=== PATIENT | male | born 1955 | race Caucasian/White ===

== ENCOUNTER 2021-10-10 14:38 | Outpatient (CLI) | payer MEDICARE, SELFPAY ==
--- NOTE | 2021-10-10 15:07 | XRR_ITS ---
PROCEDURE INFORMATION: Exam: XR Chest Exam date and time: 10/10/2021 3:09 PM Age: 66 years old Clinical indication: Shortness of breath; Additional info: R05.9 - cough, unspecified TECHNIQUE: Imaging protocol: Radiologic exam of the chest. Views: 2 views. COMPARISON: No relevant prior studies available. FINDINGS: Lungs: There is a right basilar opacity suggesting moderate right pleural effusion with associated compressive atelectasis and/or consolidation. Superimposed pneumonia cannot be excluded in this setting. A small left pleural effusion is also noted. No pneumothorax. Postobstructive pathology or neoplasm cannot be excluded. Continued imaging follow-up or CT correlation should be considered. Pleural spaces: See Lungs finding. Heart/Mediastinum: No cardiomegaly. Bones/joints: Multiple old healed right rib fractures are noted. XR/XR chest 2V* [id number] IMPRESSION: Right basilar opacity and bilateral pleural effusions as described.
--- NOTE | 2021-10-10 15:07 | XRR_ITS ---
PROCEDURE INFORMATION: Exam: XR Soft Tissue Neck Exam date and time: 10/10/2021 3:09 PM Age: 66 years old Clinical indication: Other: Cough; Additional info: R05.9 - cough, unspecified TECHNIQUE: Imaging protocol: Radiologic exam of the soft tissues of the neck. COMPARISON: No relevant prior studies available. FINDINGS: Airway: Normal. No abnormal narrowing. Soft tissues: Normal. Normal epiglottis. Bones/joints: Multiple old healed deformities right upper ribs. Probable osteopenia. Small bilateral cervical ribs. Multilevel disc disease and endplate osteophytes. Other findings: Two views submitted. XR/XR soft tissue neck [id number] IMPRESSION: No acute soft tissue findings
== END 2021-10-10 14:39 | disposition home or self-care (01) ==
PROVIDERS: PCP Family Medicine; Visit Provider Emergency Medicine
DX: R05.9 Cough, unspecified (principal); R49.1 Aphonia; R63.4 Abnormal weight loss; R06.02 Shortness of breath; R53.1 Weakness; J90 Pleural effusion, not elsewhere classified
CPT/HCPCS: 70360; 71046; 83880

== ENCOUNTER 2021-10-10 14:41 | Outpatient (CLI) | payer MEDICARE, SELFPAY ==
[2021-10-10 15:34] LABS: Basophils % 0.2 %; Eosinophils # 0.1 10^3/uL (0.0-0.8); Eosinophils % 0.7 %; Hematocrit 41.2 % (42.0-52.0); Hemoglobin 13.7 g/dL (11.7-16.6); Lymphocytes # 2.4 10^3/uL (0.8-4.8); Lymphocytes % 24.1 %; Mean Corpuscular HGB Conc 33.3 g/dL (30.0-36.0); Mean Corpuscular Hemoglobin 31.4 pg (28.0-34.0); Mean Corpuscular Volume 94.3 fl (80-94); Mean Platelet Volume 11.6 fL (7.4-10.4); Monocytes # 1.6 10^3/uL (0.2-0.9); Monocytes % 16.3 %; Neutrophils # 5.71 10^3/uL (1.8-7.7); Neutrophils % 58.3 %; Nucleated Red Blood Cells % 0 %; Platelet Count 102 10^3/cmm (130-400); Red Blood Count 4.37 10^6/uL (4.1-5.3); Red Cell Distribution Width 15.8 % (12.1-15.1); White Blood Count 9.8 10^3/uL (4.0-10.0)
[2021-10-10 16:18] LABS: Alanine Aminotransferase 19 U/L (0-41); Albumin Level 3.1 g/dL (3.5-5.2); Alkaline Phosphatase 88 U/L (40-130); Anion Gap 23.4 (5-19); Aspartate Amino Transferase 29 U/L (0-40); Blood Urea Nitrogen 68 mg/dL (8-23); Calcium 12.1 mg/dL (8.5-10.5); Carbon Dioxide 21 mmol/L (22-29); Chloride 96 mmol/L (98-107); Globulin 2.9 g/dL (1.3-4.6); Glomerular Filtration Rate 28.5 mL/min (90-130); Glucose 93 mg/dL (65-115); Osmolality Calculated 303 mOsm/kg (285-295); Potassium 3.4 mmol/L (3.5-5.1); Prostate Specific Antigen Scr 3.05 ng/mL (0-4); Sodium 137 mmol/L (136-145); Thyroid Stimulating Hormone 17.43 uIU/mL (0.27-4.20); Total Bilirubin 0.7 mg/dL (0.15-1.2)
[2021-10-10 16:49] LABS: Carcinoembryonic Antigen 1.1 ng/mL (0.0-4.7)
== END 2021-10-10 14:42 | disposition home or self-care (01) ==
PROVIDERS: PCP Family Medicine; Visit Provider Emergency Medicine
DX: R05.9 Cough, unspecified (principal); R06.02 Shortness of breath; R53.1 Weakness; R63.4 Abnormal weight loss
CPT/HCPCS: 36415; 80053; 82378; 84443; 85025; G0103

== ENCOUNTER 2021-10-10 15:41 | Inpatient (IN) | payer MEDICARE, SELFPAY ==
[2021-10-10] VITALS (10 sets, daily range): BP systolic 101–137; BP diastolic 67–80; PULSE 69–78; RESP 20–27; TEMP 36–36.8; O2SAT 92–98; BMI 26.7
--- NOTE | 2021-10-10 16:09 | ECG_ITS ---
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 Measurements Intervals [place] Rate: 77 P: -4 GA: 175 QRS: 17 QRSD: 114 T: 267 QT: 279 QTc: 317 Interpretive Statements SINUS RHYTHM MODERATE INTRAVENTRICULAR CONDUCTION DELAY [110+ ms QRS DURATION] NONSPECIFIC T-WAVE ABNORMALITY No previous ECG available for comparison Electronically Signed On 10-11-2021 8:21:26 CDT by Oswald Case M.D. [email or web address]
--- NOTE | 2021-10-10 16:45 | ED_ITS ---
HPI - SOB/Dyspnea General: Chief Complaint: Shortness of Breath/Dyspnea Stated Complaint: abnormal labs/xrays Time Seen by Provider: 10/10/21 16:24 Source: patient Mode of arrival: ambulatory History of Present Illness: HPI Narrative: 66-year-old male presents emergency room with complaint of a pleural effusion. Last several weeks patient has had shortness of breath cough with some swelling in his lower extremities. No fever sweats or chills he has had some mild hemoptysis he is also noticed some weight loss. He was seen in the local clinic chest x-ray showed a pleural effusion he was directed here by by the midlevel. He denies any chest pain no fever sweats or chills. He is not on any antico agulants. Patient is a former smoker. MD elicited complaint: shortness of breath and cough Pertinent past history: COPD Onset (ago): week(s) (3) Timing: constant Severity: mild Exacerbating factors: exertion Relieving factors: rest Known history of: COPD Associated symptoms: Reports cough and hemoptysis; Deny abdominal pain, chest congestion, chest pain, diaphoresis, dizziness, extremity pain, fever(s), lightheadedness, myalgias, nausea, orthopnea, palpitations, paresthesias, polydipsia, polyuria, rash, sense of impending doom, syncope or vomiting Treatment prior to arrival: none Review of Systems Const: Denies: fever(s), chills or diaphoresis ENMT: Denies: throat pain, ear or mastoid pain, nasal discharge or nasal congestion Card: Denies: chest pain, palpitations, lightheadedness, syncope or orthopnea Resp: Reports: dyspnea, productive cough, wheezing and hemoptysis; Denies: non-productive cough or chest congestion GI: Denies: abdominal pain, nausea or vomiting : Denies: flank pain, difficulty urinating, dysuria, urinary frequency or urinary urgency Musc: Denies: neck pain, back pain or extremity pain Skin/Breast: Denies: rash or pruritus Neuro: Denies: dizziness Endo: Denies: polyuria or polydipsia PFSH ED 2 PFSH: Medical History BPH (benign prostatic hyperplasia) Depression Hypertension Hypothyroid Pneumothorax Renal failure Rib fracture Physical Exam Const: GENERAL APPEARANCE: cooperative and comfortable ORIENTATION/CONSCIOUSNESS: Yes awake, Yes oriented to person, Yes oriented to place and Yes oriented to time HENMT: COMMON NORMALS: normocephalic, atraumatic, hearing grossly normal bilaterally, external ears normal, EAC's normal, TM's normal bilaterally, Normal nasal mucous membranes and turbinates present, moist oral mucous membranes and oropharynx normal HEAD & SCALP: normocephalic and atraumatic NOSE: Normal nasal mucous membranes and turbinates present EXTERNAL EAR: Yes external ears normal EXTERNAL AUDITORY CANAL: EAC's normal TYMPANIC MEMBRANE: TM's n ormal bilaterally Eye: COMMON NORMALS: Equal, round and reactive pupils present, EOMs intact bilaterally, conjunctivae normal and no scleral icterus CONJUNCTIVA: Yes conjunctivae normal PUPIL: Yes Equal, round and reactive pupils present Neck/C-Spine: COMMON NORMALS: full ROM, no lymphadenopathy, supple and no JVD Lymph: LYMPHATIC: no lymphadenopathy noted and no lymphedema noted Resp: COMMON NORMALS: normal respiratory effort, No retractions, No use of accessory muscles and clear to auscultation bilaterally AUSCULTATION: clear to auscultation bilaterally Cardio: COMMON NORMALS: no JVD, regular rate, regular rhythm and No murmurs present (Cardio) RATE: regular rate RHYTHM: regular rhythm GI: COMMON NORMALS: Soft to palpation and No hepatosplenomegaly present AUSCULTATION: Yes normoactive bowel sounds PALPATION: Yes Soft to palpation, No Tenderness to palpation present (GI), No Guarding due to palpation present (GI) and Yes No hepatosplenomegaly present Extremity: COMMON NORMALS: normal to inspection, capillary refill normal, no clubbing, cyanosis or edema, no calf tenderness and no pedal edema Neuro: SENSORIUM/ORIENTATION: Yes oriented to person, Yes oriented to place and Yes oriented to time Skin: COMMON NORMALS: no rashes or lesions noted GENERAL SKIN EXAM: no rashes or lesions noted Course Vital Signs: Vital signs: Vital Signs Temperature 97.4 F L 10/12/21 15:55 Pulse Rate 90 10/12/21 15:55 Respiratory Rate 18 10/12/21 15:55 Blood Pressure 124/70 10/12/21 15:55 Pulse Oximetry 90 10/12/21 17:29 Oxygen Delivery Me thod 10/12/21 15:55 Oxygen Flow Rate 2 10/12/21 15:55 MDM - SOB/Dyspnea Medical Decision Making Large pleural effusion highly suspicious for tumor. Will admit discussed with hospitalist orders written Medical Records I reviewed the patient's medical records. Lab Data I reviewed the patient's lab results. : 10/12/21 05:16 10/12/21 05:16 Labs/Radiology: Radiology Impressions Chest/Abdomen/Pelvis CT 10/10/21 17:56 IMPRESSION: 1. Bilateral pleural effusions. Right perihilar and basilar consolidations. See discussion above. No ground-glass opacity. No obvious pulmonary nodules. Pleural metastasis may be present in this setting given abnormalities in the abdomen and pelvis. 2. Somewhat limited assessment due to lack of IV contrast however no obvious enlarged mediastinal adenopathy. Mildly enlarged cardiophrenic adenopathy is probably present. 3. Diffuse esophageal dilatation. See discussion above. 4. Minimal ascending aortic dilatation at 4.1 cm. IMPRESSION: 1. Findings suggestive of extensive peritoneal carcinomatosis with omental caking. Confluent soft tissue density suspicious for adenopathy in the superior aortocaval region. No obvious source of primary malignancy on this exam. 2. Otherwise somewhat limited assessment due to lack of contrast. No obvious bowel obstruction, free air or pneumatosis. 3. Small amount of abdominopelvic ascites. ADDENDUM: 10/10/211957 Addendum- Nonobstructing left lower pole renal calculus measuring 2 x 2 mm. Additional mildly enlarged aortocaval adenopathy is also present. Lumbar Spine CT 10/10/21 17:56 IMPRESSION: 1. No acute spine fracture or subluxation. No severe stenosis related to osseous elements. 2. Soft tissue/visceral findings as described on abdominopelvic CT exam. Thyroid Ultrasound 10/11/21 06:25 IMPRESSION: Unremarkable thyroid. Abdomen Ultrasound 10/12/21 10:03 IMPRESSION: No ascites. Thoracentesis Ultrasound 10/12/21 10:03 IMPRESSION: Uncomplicated ultrasound-guided RIGHT thoracentesis with removal of 1000 cc pleural fluid. Chest X-Ray 10/12/21 14:58 IMPRESSION: No pneumothorax status post RIGHT thoracentesis. Lymph Node Biopsy Ultrasound 10/12/21 15:05 IMPRESSION: Uncomplicated ultrasound-guided biopsy RIGHT inguinal lymph node/nodule Laboratory Results PT 15.70 SECONDS (12.1-14.9) H 10/10/21 17:19 INR 1.22 (0.8-1.2) H 10/10/21 17:19 APTT 28.2 SECONDS (23.9-36.7) 10/10/21 17:19 D-Dimer <= 0.27 ug/mIFEU (0-0.59) 10/10/21 17:19 Discharge Plan Discharge Patient Disposition: Placed in Observation Admit Provider: Vijay Phillip Clinical Impression: Pleural effusion, Hypercalcemia, Chronic renal failure, Metabolic acidosis Discharge Diet: Regular Discharge Activity: Resume usual activity and Increase activity as tolerated Coding Level of Care Code ED Family Consumer Science Teacher for Jose Luis Cronin
--- NOTE | 2021-10-10 17:55 | P.HP_ITS ---
Providers/Chief Complaint Primary Care Provider: Josemanuel Negrete DO Chief Complaint: abnormal labs/xrays History of Present Illness Chandan Tirado is a 66 year old male with past medical history of hypertension, heart murmur, history of rib fracture and a possible punctured lung after trauma around 6 years ago, COPD who presents to the ER today because of difficulty in breathing which has been getting worse for over a month month and a half. Symptoms associated with orthopnea and PND. Currently after the patient he is not even able to talk without feeling short of breath. He is also complaining of swelling which has been increasing gradually over the last 3 weeks in his lower limbs. He feels numbness from the waist down. Denies any loss of bowel or bladder functions. Denies any fever. In the ER he was found to have bilateral pleural effusion, saturating 98% on room air but desaturating on lying down, short of breath, blood work showed hemoglobin of 13.7, platelet count of 102, potassium of 3.4, BUN of 68, creatinine of 2.3, calcium of 12.1, proBNP of 1169, TSH of 17.43 Review of Systems General: Reports: 10 or more systems reviewed and unremarkable except in HPI and below Const: Denies: fever(s), chills, body aches, change in appetite, change in weight, malaise, night sweats, diaphoresis, change in sleep pattern, daytime sleepiness or snoring Eyes: Denies: change in vision, blurry vision, photophobia, eye discomfort or eye discharge ENMT: Denies: throat pain, enlarged tonsils, hoarseness, mouth pain, oral sores, dry mouth, tinnitus, nasal congestion or post nasal drip Card: Denies: chest pain, palpitations, irregular heart rhythm, edema, swelling of feet/ankles, lightheadedness, syncope, pre-syncope, dyspnea on exertion, orthopnea, leg pain with exertion or acrocyanosis Resp: Denies: dyspnea, productive cough, non-productive cough, wheezing, stridor, pain on inspiration, change in phlegm color, hemoptysis or chest congestion GI: Denies: abdominal pain, nausea, vomiting, hematemesis, coffee ground emesis, dysphagia, heartburn, diarrhea, constipation, bloating, GI cramping, change in bowel habits, pain on defecation, hematochezia or melena : Denies: flank pain, difficulty urinating, dysuria, urinary frequency, urinary urgency, urinary hesitancy, urinary dribbling, difficulty starting urination, change in urine stream, nocturia or hematuria Musc: Denies: neck pain, back pain, extremity pain, joint pain, joint swelling, joint redness, joint stiffness or limited range of motion Neuro: Denies: headache(s), numbness in extremities, weakness in extremities, sensory changes, lack of coordination, difficulty walking, frequent falls, dizziness, vertigo, confusion, Slurred speech present, difficulty communicating thoughts or seizure-like activity Psych: Denies: anxiety, depression, mood swings, panic attacks, hopelessness or irritability Endo: Denies: polyuria, polydipsia, tired all the time, cold intolerance, excessive sweating, flushing or heat intolerance Howie/Lymph: Denies: easy bruising or easy bleeding All/Imm: Denies: tongue swelling, facial swelling or acute wheezing Medications/Allergies Home Medications Medication Instructions Recorded Confirmed Last Taken Type albuterol sulfate 90 mcg/actuation 2 puff inhalation Q6H PRN 10/10/21 10/10/21 Unknown History aerosol inhaler Shortness Of Breath alprazolam 1 mg tablet 1 mg PO BEDTIME PRN Anxiety 10/10/21 10/10/21 Unknown History amlodipine 5 mg tablet 5 mg PO DAILY 10/10/21 10/10/21 10/10/21 History brexpiprazole 0.5 mg tablet 0.5 mg PO DAILY 10/10/21 10/10/21 10/09/21 History (Nicole) carvedilol 12.5 mg tablet 12.5 mg PO BID 10/10/21 10/10/21 10/09/21 History citalopram 40 mg tablet 40 mg PO DAILY 10/10/21 10/10/21 10/09/21 History fluticasone propionate 115 2 puff inhalation Q12H 10/10/21 10/10/21 10/10/21 History mcg-salmeterol 21 mcg/actuation HFA inhaler (Advair HFA) fluticasone propionate 50 2 spray intranasal BID PRN Nasal 10/10/21 10/10/21 Unknown History mcg/actuation nasal Congestion spray,suspension gabapentin 100 mg capsule 100 mg PO BID 10/10/21 10/10/21 10/09/21 History ibuprofen 800 mg tablet 800 mg PO BID PRN Pain 10/10/21 10/10/21 10/10/21 History prazosin 1 mg capsule 1 - 3 mg PO BEDTIME 10/10/21 10/10/21 10/09/21 History tamsulosin 0.4 mg capsule 0.8 mg PO DAILY 10/10/21 10/10/21 10/09/21 History Allergies Allergy/AdvReac Type Severity Reaction Status Date / Time mold Allergy Intermediate unknown Uncoded 10/10/21 13:12 PFSH Acute PFSH: Medical History (Updated 10/10/21 @ 18:02 by Vijay Phillip MD) BPH (benign prostatic hyperplasia) Depression Hypertension Hypothyroid Pneumothorax Renal failure Rib fracture Vitals/I&O/Wt Last Vital Signs Temp 96.8 F L 10/10/21 15:49 Pulse 78 10/10/21 15:49 Resp 20 H 10/10/21 15:49 BP 101/67 10/10/21 15:49 Pulse Ox 92 10/10/21 16:54 O2 Del Method 10/10/21 15:49 Weight last 48 hrs Weight 89.358 kg Physical Exam Narrative: General: No acute distress, AO x3, pleasant HEENT: PERRLA, pupils bilaterally equal and reactive Chest: Bilateral bronchial breath sounds, decreased air entry bilateral lower zone, rhonchi diffuse all over the lung jefferson, fine crackles bilaterally lower zone CVS: S1-S2 regular, early diastolic murmur present at aortic area radiating to apex, no tachycardia, no gallops, no rubs Abdomen: Soft, nontender, no organomegaly, bowel sounds present Neuro: No focal deficits, no facial deformity, AO x3, power 5/5 in all limbs Extremities: Bilateral 2+ pitting edema up to the knees A&P Assessment and plan (1) Shortness of breath: Most likely secondary to combination of COPD and acute decompensated congestive heart failure. No echocardiogram in the past. proBNP mildly elevated to 1100. Clinically patient looks like in congestive heart failure. Oxygen supplementation keeping saturation over 90%. Check CT chest without contrast to rule out any underlying consolidation or mass under the pleural fluid. Status: Acute (2) Congestive heart failure: IV Lasix 80 mg once, Martínez catheter. Strict input output charting, daily weights. Echocardiogram. Telemetry. Status: Acute (3) Pleural effusion: Could be secondary congestive heart failure. We will try to diurese and look for response. If patient continues to feel short of breath will consult pulmonology for possible thoracocentesis for further etiology and treatment Status: Acute (4) Renal failure: Do not have baseline creatinine in system. Given electrode abnormality and metabolic acidosis could be MATTY on CKD. Patient states he takes ibuprofen 800 mg twice daily on a daily basis rather than as needed. Martínez catheter as above. Check urinalysis, urine lites, urine creatinine, urine eosinophils. CT abdomen pelvis to rule out obstructive nephropathy. Monitor BMP daily. Medical reconstruction done for nephrotoxic drugs. Status: Acute (5) Hypothyroid: No past history of hypothyroidism. Not on levothyroxine. TSH more than 17. Check free T3, free T4, thyroid peroxidase antibody, cortisol level. Check thyroid ultrasound Start on IV levothyroxine if cortisol levels appropriate at 75 mcg IV daily while on telemetry. Status: Acute (6) Hypertension: Goal blood pressure less than 140/90 mmHg with mean over 65. Takes amlodipine and carvedilol twice daily at home. Hold off for now and continue to monitor. Status: Acute (7) Metabolic acidosis: Continue to monitor daily. Status: Acute (8) Hypercalcemia: Given presentation cannot rule out underlying malignancy versus secondary to CKD Check PTH, vitamin D levels Status: Acute (9) Thrombocytopenia: Continue to monitor. Status: Acute Plan Lower limb paresthesia: Patient complaining of lower limb paresthesia going on for last 2 to 3 months. Does not complain or give history of any recent trauma. Could be radiculopathy versus neuropathy. Check CT lumbar spine. Analgesia: Tylenol as needed, morphine as needed Glycemic control: Not needed. Check A1c Nutrition: Renal cardiac diet CODE STATUS: Full code. Discussed in detail. Patient states he would like to be coded only 3 times and if he does not revive he does not want any further attempts. PUD prophylaxis: Famotidine for PUD prophylaxis DVT prophylaxis: Heparin 5000 every 12 hourly. Discharge planning: Home with caregiver once medically stable. Admit to CSU. This documentation was created by [employer] pressure control supervisor software. Every effort was made to ensure accuracy of pressure control supervisor. Any obvious errors or omissions should be clarified with the author of the document. Attestations Medical Necessity Statement*: Admission for more than 2 midnights for management of shortness of breath secondary to congestive heart failure, hypothyroidism, renal failure leading to metabolic acidosis Time Spent in Patient Care: Greater than 35 minutes Coding Level of Care Code Acute Supervisor/Port Director for Jaretg Fwd Diagnoses Shortness of breath R06.02 Congestive heart failure I50.9 Pleural effusion J90 Renal failure N19 Hypothyroid E03.9 Hypertension I10 Metabolic acidosis E87.2 Hypercalcemia E83.52 Thrombocytopenia D69.6
--- NOTE | 2021-10-10 17:55 | USCV_ITS ---
Candida Chandan Age: 66 Gender: M : 1955 Exam Date: 10/10/2021 20:03 Ordering Phys: Vijay Phillip MD Technologist: Shyam Haddad [place] [facility] [place] Indication: Congestive heart failure / aortic regurg murmur BP: 134 / 80 HR: 87 Rhythm: Atrial fibrillation Technical Quality: Very technically difficult study MEASUREMENTS (Male / Female) Normal Values 2D ECHO LV Diastolic Diameter PLAX 3.9 cm 4.2 - 5.9 / 3.9 - 5.3 cm LV Systolic Diameter PLAX 3.5 cm IVS Diastolic Thickness 1.4 cm 0.6 - 1.0 / 0.6 - 0.9 cm IVS Systolic Thickness 1.5 cm LVPW Diastolic Thickness 1.2 cm 0.6 - 1.0 / 0.6 - 0.9 cm LVPW Systolic Thickness 1.6 cm LVOT Diameter 2.1 cm LV Ejection Fraction 2D Teich 10.4 % LV Ejection Fraction MOD 2C 60.7 % LV Ejection Fraction 2C AL 59.6 % LA Diameter 3.6 cm Aorta at Sinotubular Diameter 2.4 cm IVC Diameter 1.1 cm M-MODE Aortic Annulus Diameter 2.2 cm LA Ao Ratio MM 1.8 MV E Point Septal Separation 0.5 cm DOPPLER Right Atrial Pressure 3.0 mmHg PV Peak Velocity 98.0 cm/s FINDINGS Left Ventricle Very limited study with echo contrast utilized. Left ventricular size and function probably within normal limits though even with contrast it is difficult to see. Irregular rhythm prevents diastology evaluation. Ejection fraction is probably within normal limits. Wall motion disturbances cannot be determined. Right Ventricle Right ventricle not well visualized. Right Atrium Right atrium not well visualized. Left Atrium Left atrium not well visualized. Mitral Valve Mitral valve not well visualized. Aortic Valve Aortic valve not well visualized. Tricuspid Valve Tricuspid valve not well visualized. Pulmonic Valve Pulmonic valve not well visualized. Pericardium Normal pericardium without effusion. Aorta Aorta not well visualized. IVC Inferior vena cava not visualized. CONCLUSIONS Very limited study with echo contrast utilized. Left ventricular size and function probably within normal limits though even with contrast it is difficult to see. Irregular rhythm prevents diastology evaluation. Ejection fraction is probably within normal limits. Wall motion disturbances cannot be determined. There are no prior echocardiogram studies to compare. Dr. Oswald Case MD (Electronically Signed) Final Date: 10 October 2021 22:25 S
--- NOTE | 2021-10-10 17:56 | CTR_ITS ---
PROCEDURE INFORMATION: Exam: CT Lumbar Spine Without Contrast Exam date and time: 10/10/2021 6:15 PM Age: 66 years old Clinical indication: Low back pain; Additional info: Lower limb parasthesia TECHNIQUE: Imaging protocol: Computed tomography of the lumbar spine without contrast. Radiation optimization: All CT scans at this facility use at least one of these dose optimization techniques: automated exposure control; mA and/or kV adjustment per patient size (includes targeted exams where dose is matched to clinical indication); or iterative reconstruction. COMPARISON: [place] [id number] 10/10/2021 6:11 PM RADIATION DOSE METRICS: Total DLP (mGy-cm): 775.2 FINDINGS: Bones/joints: Most inferior ribs appears somewhat hypoplastic and are designated at T12. Moderate vacuum disc degeneration at L3-L4 and L4-L5. Minimal multilevel endplate spurring and mild facet arthropathy are noted. Chronic sclerosis at the anterior bilateral SI joints without osseous destruction/erosions or ankylosis. No obvious severe stenosis related to osseous elements. Punctate sclerotic focus measuring 2 mm in the left iliac bone. Kidneys and ureters: Nonobstructing left renal calculus measuring about 2 x 2 mm. Lymph nodes: Partially visualized confluent soft tissue density suspicious for neoplastic disease/adenopathy in the anterior superior aortocaval region and left periaortic adenopathy as described on abdominopelvic CT exam report. Soft tissues: Unremarkable. CT/CT lumbar spine wo con* [id number] IMPRESSION: 1. No acute spine fracture or subluxation. No severe stenosis related to osseous elements. 2. Soft tissue/visceral findings as described on abdominopelvic CT exam.
--- NOTE | 2021-10-10 17:56 | CTR_ITS ---
PROCEDURE INFORMATION: Exam: CT Chest Without Contrast; Diagnostic Exam date and time: 10/10/2021 6:11 PM Age: 66 years old Clinical indication: Abdominal tenderness; Other: Chf, pleural effusion, beto TECHNIQUE: Imaging protocol: Diagnostic computed tomography of the chest without contrast. Radiation optimization: All CT scans at this facility use at least one of these dose optimization techniques: automated exposure control; mA and/or kV adjustment per patient size (includes targeted exams where dose is matched to clinical indication); or iterative reconstruction. COMPARISON: CR XR chest 2V* [id number] 10/10/2021 3:09 PM RADIATION DOSE METRICS: Total DLP (mGy-cm): 898.03 FINDINGS: Lungs: No obvious central airway obstruction or endobronchial lesions. Pleural spaces: Moderate-large right and small left pleural effusions. Patchy right perihilar and basilar consolidations may be related to compressive atelectasis versus developing pneumonia and follow-up should be obtained. No ground-glass opacities otherwise. Heart: Normal heart size with coronary calcification. No obvious vascular congestion. Mediastinal space: There is mild diffuse thoracic esophageal distention with fluid/debris which may represent gastroesophageal reflux. Although no large obstructive masses are identified, a small obstructive lesion/stricture or distal esophageal motility disorder cannot be excluded. Follow-up esophageal assessment may be obtained if clinically indicated. Lymph nodes: Nonenlarged mediastinal hilar lymph nodes consistent with chronic granulomatous disease. Mildly enlarged cardiophrenic adenopathy is probably present measuring up to 11 mm. Vasculature: Minimal ascending aortic dilatation at 4.1 cm. Descending aorta measures 3.1 cm. Bones/joints: No acute findings. Soft tissues: No acute findings. PROCEDURE INFORMATION: Exam: CT Abdomen And Pelvis Without Contrast Exam date and time: 10/10/2021 6:11 PM Age: 66 years old Clinical indication: Abdominal tenderness; Other: Chf, pleural effusion, beto TECHNIQUE: Imaging protocol: Computed tomography of the abdomen and pelvis without contrast. Radiation optimization: All CT scans at this facility use at least one of these dose optimization techniques: automated exposure control; mA and/or kV adjustment per patient size (includes targeted exams where dose is matched to clinical indication); or iterative reconstruction. COMPARISON: CR XR chest 2V* [id number] 10/10/2021 3:09 PM RADIATION DOSE METRICS: Total DLP (mGy-cm): 898.03 FINDINGS: Liver: Normal. No mass. Gallbladder and bile ducts: Gallbladder is somewhat distended which may be related to prolonged fasting versus cholestasis. No obvious imaging signs of acute cholecystitis or bile duct dilatation. Clinical correlation should be obtained. Sonographic follow-up may also be considered if clinically indicated. Pancreas: Fatty atrophy of the pancreas with no large discrete mass or ductal dilatation. Spleen: Normal spleen size with multiple calcified splenic granulomas. Adrenal glands: Small right adrenal calcifications, likely granulomatous disease. No adrenal masses otherwise. Kidneys and ureters: No obstructing calculus. No hydronephrosis. Stomach and bowel: Moderate amount of rectal stool with no evidence of significant fecal retention in the proximal colon. No colonic or small bowel obstruction or pneumatosis. Small bowel assessment is otherwise limited due to lack of contrast. Appendix: No evidence of appendicitis. Intraperitoneal space: There is small abdominopelvic ascites with diffuse somewhat irregular peritoneal thickening and several anterior sub mesenteric/omental nodularity and confluent soft tissue density suggesting extensive peritoneal carcinomatosis with omental caking. Vasculature: No abdominal aortic aneurysm. Lymph nodes: Confluent soft tissue density in the upper aortocaval region suspicious for metastatic disease/confluent adenopathy measuring about 5.8 by 4.1 cm. Mildly enlarged mesenteric and inguinal adenopathy measuring up to 14 mm in the right inguinal region Urinary bladder: Unremarkable as visualized. Reproductive: Unremarkable as visualized. Bones/joints: No acute fracture. Soft tissues: No acute findings. CT/[place] [id number] IMPRESSION: 1. Bilateral pleural effusions. Right perihilar and basilar consolidations. See discussion above. No ground-glass opacity. No obvious pulmonary nodules. Pleural metastasis may be present in this setting given abnormalities in the abdomen and pelvis. 2. Somewhat limited assessment due to lack of IV contrast however no obvious enlarged mediastinal adenopathy. Mildly enlarged cardiophrenic adenopathy is probably present. 3. Diffuse esophageal dilatation. See discussion above. 4. Minimal ascending aortic dilatation at 4.1 cm. IMPRESSION: 1. Findings suggestive of extensive peritoneal carcinomatosis with omental caking. Confluent soft tissue density suspicious for adenopathy in the superior aortocaval region. No obvious source of primary malignancy on this exam. 2. Otherwise somewhat limited assessment due to lack of contrast. No obvious bowel obstruction, free air or pneumatosis. 3. Small amount of abdominopelvic ascites.
[2021-10-10 18:04] LABS: INR 1.22 (0.8-1.2)
[2021-10-10 18:05] LABS: Partial Thromboplastin Time 28.2 SECONDS (23.9-36.7)
[2021-10-10 18:33] LABS: D Dimer <= 0.27 ug/mIFEU (0-0.59)
[2021-10-10] MEDS: FUROsemide 10 mg/mL SDV 10mL 80 MG IVP (19:07)
[2021-10-10 20:01] LABS: Potassium, Radom Urine 46 mmol/L; Urine Creatinine 176 mg/dL (39-259)
[2021-10-10 20:20] LABS: Anion Gap 21.2 (5-19); Blood Urea Nitrogen 67 mg/dL (8-23); Calcium 11.7 mg/dL (8.5-10.5); Carbon Dioxide 21 mmol/L (22-29); Chloride 94 mmol/L (98-107); Glucose 91 mg/dL (65-115); Iron 55 ug/dL (59-158); Magnesium 2.3 mg/dL (1.7-2.3); Osmolality Calculated 295 mOsm/kg (285-295); Percent Saturation 29.8 % (20-50); Potassium 3.2 mmol/L (3.5-5.1); Sodium 133 mmol/L (136-145); Total Iron Binding Capacity 184 mcg/dl; Unsaturated Iron Binding 129 ug/dL (112-347)
[2021-10-10 20:25] LABS: Add Urine Microscopic? YES; Bilirubin Urine Neg (Negative); Blood Urine 3+ (Negative); Glucose Urine UA Norm (Normal); Ketones Urine Negative (Negative); Leukocyte Esterase Urine Negative (Negative); Nitrate Urine Negative (Negative); Protein Urine Trace (Negative); Specific Gravity, Urine 1.025 (1.005-1.030); Urine Appearance Clear (CLEAR); Urine Color Yellow (Yellow); Urobilinogen Urine Norm (Negative); pH Urine 5 (5-7)
[2021-10-10 20:26] LABS: Bacteria Urine TRACE /hpf; Hyaline Casts Urine 25-40 /lpf; Mucus Urine TRACE /hpf; Squamous Epithelial Cell Urine 0-4 /hpf (0-5)
[2021-10-10 20:28] LABS: Add Urine Culture? No
[2021-10-10 20:34] LABS: Folate Level < 2.0 ng/mL (4.5-32.2)
[2021-10-10 20:35] LABS: Urine Random Chloride < 10 mmol/L; Urine Random Sodium 10 mmol/L
[2021-10-10 20:36] LABS: Procalcitonin 0.91 ng/mL (0-0.5); Vitamin B12 404 pg/mL (232-1245)
[2021-10-10] MEDS: perflutren protein-a microsphr 0.22 mg/mL SDV 3 mL IV (21:19)
[2021-10-10] MEDS: budesonide 0.5 mg/2 mL Neb INHALATION (21:34)
[2021-10-10 21:36] LABS: Eosinophil Urine No Eosinophils Seen
[2021-10-10 21:37] LABS: Calcium 11.9 mg/dL (8.5-10.5)
[2021-10-10 21:44] LABS: Parathyroid Hormone 4.3 pg/mL (15-65)
[2021-10-10 22:14] LABS: 25 Hydroxy Vitamin D 90 ng/mL (30-100)
[2021-10-10] MEDS: famotidine 20 mg/2 mL INJ IVP (22:42)
[2021-10-10] MEDS: heparin 5,000 unit/mL INJ 1 mL 5000 UNIT SUBCUT (22:42)
[2021-10-10] MEDS: cyanocobalamin 1,000 mcg/mL SDV 1000 MCG IM (22:43)
[2021-10-10] MEDS: docusate sodium 100 mg Capsule PO (22:43)
[2021-10-10] MEDS: gabapentin 100 mg Capsule PO (22:43)
[2021-10-10] MEDS: ferrous gluconate 324 mg Tablet PO (22:43)
[2021-10-10 23:57] LABS: Basophils % 0.1 %; Eosinophils # 0.1 10^3/uL (0.0-0.8); Eosinophils % 0.8 %; Hematocrit 37.7 % (42.0-52.0); Hemoglobin 12.7 g/dL (11.7-16.6); Lymphocytes % 19.4 %; Mean Corpuscular HGB Conc 33.7 g/dL (30.0-36.0); Mean Corpuscular Hemoglobin 31.8 pg (28.0-34.0); Mean Corpuscular Volume 94.5 fl (80-94); Mean Platelet Volume 11.6 fL (7.4-10.4); Monocytes # 1.5 10^3/uL (0.2-0.9); Monocytes % 14.7 %; Neutrophils # 6.61 10^3/uL (1.8-7.7); Neutrophils % 64.3 %; Nucleated Red Blood Cells % 0 %; Platelet Count 97 10^3/cmm (130-400); Red Blood Count 3.99 10^6/uL (4.1-5.3); Red Cell Distribution Width 15.7 % (12.1-15.1); White Blood Count 10.3 10^3/uL (4.0-10.0)
[2021-10-11] VITALS (14 sets, daily range): BP systolic 121–140; BP diastolic 61–80; PULSE 75–106; RESP 16–26; TEMP 36.3–36.8; O2SAT 92–96
[2021-10-11 00:38] LABS: Cortisol Random 32.85 ug/dL (2.47-19.5); Free T4 Free Thyroxine 0.86 ng/dL (0.82-1.77); T3 Free 0.5 PG/ML (2.0-4.4)
[2021-10-11 03:28] LABS: Basophils % 0.2 %; Eosinophils # 0.1 10^3/uL (0.0-0.8); Eosinophils % 1.1 %; Hematocrit 38.8 % (42.0-52.0); Lymphocytes # 1.9 10^3/uL (0.8-4.8); Lymphocytes % 18.6 %; Mean Corpuscular HGB Conc 33.5 g/dL (30.0-36.0); Mean Corpuscular Hemoglobin 32.2 pg (28.0-34.0); Mean Platelet Volume 12.2 fL (7.4-10.4); Monocytes # 1.4 10^3/uL (0.2-0.9); Monocytes % 14.3 %; Neutrophils # 6.52 10^3/uL (1.8-7.7); Neutrophils % 64.9 %; Nucleated Red Blood Cells % 0 %; Platelet Count 95 10^3/cmm (130-400); Red Blood Count 4.04 10^6/uL (4.1-5.3); Red Cell Distribution Width 15.9 % (12.1-15.1); White Blood Count 10.1 10^3/uL (4.0-10.0)
[2021-10-11 03:41] LABS: Alanine Aminotransferase 18 U/L (0-41); Albumin Level 2.7 g/dL (3.5-5.2); Alkaline Phosphatase 79 U/L (40-130); Anion Gap 18.9 (5-19); Aspartate Amino Transferase 24 U/L (0-40); Blood Urea Nitrogen 66 mg/dL (8-23); Calcium 11.6 mg/dL (8.5-10.5); Carbon Dioxide 24 mmol/L (22-29); Chloride 96 mmol/L (98-107); Globulin 2.8 g/dL (1.3-4.6); Glucose 91 mg/dL (65-115); Magnesium 2.2 mg/dL (1.7-2.3); Osmolality Calculated 301 mOsm/kg (285-295); Sodium 136 mmol/L (136-145); Total Bilirubin 0.6 mg/dL (0.15-1.2); Total Protein 5.5 g/dL (6.6-8.7)
[2021-10-11 03:45] LABS: Cholesterol 222 mg/dL (0-200); HDL Cholesterol 10 mg/dL (60-100); Triglycerides 546 mg/dL (0-150); VLDL Cholestrol Calculation 109 mg/dL (0-30)
[2021-10-11 03:55] LABS: Cortisol Random 22.58 ug/dL (2.47-19.5)
[2021-10-11 03:58] LABS: Estmated Average Glucose 97
[2021-10-11 04:10] LABS: LDL Cholesterol Direct 78 mg/dL (0-100)
[2021-10-11 04:15] LABS: Potassium 2.9 mmol/L (3.5-5.1)
[2021-10-11] MEDS: lidocaine 1% 5 ML in potassium chloride premix 100 ML 25 ML IV (04:45)
--- NOTE | 2021-10-11 06:25 | USR_ITS ---
PROCEDURE INFORMATION: Exam: US Soft Tissue Head and Neck, Thyroid Exam date and time: 10/11/2021 7:03 AM Age: 66 years old Clinical indication: Condition or disease; Cancer; Other: At this time unknown; Additional info: With doppler, concern for mass TECHNIQUE: Imaging protocol: Real-time ultrasound scan of the neck with image documentation. Exam focused on the thyroid. COMPARISON: CR XR soft tissue neck [id number] 10/10/2021 3:09 PM FINDINGS: Right thyroid lobe: The right thyroid lobe measures 3.7 x 1.6 x 1.3 cm. The background parenchyma is fairly homogeneous. Left thyroid lobe: The left thyroid lobe measures 3.5 x 1.8 x 1.4 cm. The background parenchyma is fairly homogeneous. Isthmus: The isthmus measures up to 0.4 cm in AP dimension. US/US thyroid [id number] IMPRESSION: Unremarkable thyroid.
[2021-10-11] MEDS: FUROsemide 10 mg/mL SDV 10mL 80 MG IVP ×2 (06:39→17:30)
[2021-10-11] MEDS: potassium chloride ER 20 mEq Tablet 100 MEQ PO (06:39)
[2021-10-11] MEDS: famotidine 20 mg/2 mL INJ IVP ×2 (07:58→17:31)
[2021-10-11] MEDS: metOLazone 5 MG Tablet PO (08:08)
[2021-10-11] MEDS: ferrous gluconate 324 mg Tablet PO ×2 (08:08→17:49)
[2021-10-11] MEDS: docusate sodium 100 mg Capsule PO (08:08)
[2021-10-11] MEDS: citalopram 20 mg Tablet PO (08:08)
[2021-10-11] MEDS: tamsulosin 0.4 mg Capsule 0.8 MG PO (08:08)
[2021-10-11] MEDS: heparin 5,000 unit/mL INJ 1 mL 5000 UNIT SUBCUT ×2 (08:08→17:49)
[2021-10-11] MEDS: folic acid 1 mg Tablet PO ×2 (08:08→17:49)
[2021-10-11] MEDS: gabapentin 100 mg Capsule PO ×2 (08:08→17:49)
[2021-10-11] MEDS: levothyroxine 100 mcg SDV 60 MCG IVP (09:59)
[2021-10-11] MEDS: budesonide 0.5 mg/2 mL Neb INHALATION ×2 (10:01→20:45)
[2021-10-11] MEDS: ipratropium-albuterol 3 mL Neb INHALATION ×2 (10:01→20:45)
[2021-10-11] MEDS: peg /e-lyte soln 4,000 mL Btl 4000 ML PO (13:39)
--- NOTE | 2021-10-11 13:43 | PC.NURSE ---
Son ericka will be out of town for a few days. If we need to get ahold of family that lives in [place]. Call [id number] Nichol Britoizer: [phone]
--- NOTE | 2021-10-11 14:24 | PM.PN ---
Subjective Subjective: No acute events overnight. Today morning on examination patient seen sitting at bedside. States breathing is a little better. Patient seems slightly confused. Martínez in place. Hemodynamically stable. Family at bedside. Vitals/I&O/Wt Last Vital Signs Temp 97.6 F 10/11/21 12:00 Pulse 79 10/11/21 12:00 Resp 22 H 10/11/21 12:00 BP 125/67 10/11/21 12:00 Pulse Ox 94 10/11/21 12:00 O2 Del Method 10/11/21 12:00 O2 Flow Rate 1 10/11/21 10:01 10/10/21 10/11/21 10/11/21 22:59 06:59 14:59 Intake Total 50 / 50 400 / 450 465 / 465 Output Total 800 / 800 400 / 400 Balance 50 / 50 -400 / -350 65 / 65 Weight last 48 hrs Weight 87.997 kg Weight 89.358 kg Physical Exam Narrative: General: No acute distress, AO x3, pleasant HEENT: PERRLA, pupils bilaterally equal and reactive Chest: Bilateral bronchial breath sounds, decreased air entry bilateral lower zone, rhonchi diffuse all over the lung jefferson, fine crackles bilaterally lower zone CVS: S1-S2 regular, early diastolic murmur present at aortic area radiating to apex, no tachycardia, no gallops, no rubs Abdomen: Soft, nontender, no organomegaly, bowel sounds present Neuro: No focal deficits, no facial deformity, AO x3, power 5/5 in all limbs Extremities: Bilateral 2+ pitting edema up to the knees Urinary Catheter Management: Martínez: Cath Placed During This Visit: yes Reason for Continuing Indwelling Catheter: Other Urinary Catheter Date of Insertion: 10/10/21 Urinary Catheter Time of Insertion: 18:39 Data : 10/11/21 02:22 10/11/21 02:22 Micro: Microbiology 10/10/21 18:42 Legionella Urinary Antigen - Final Urine Catheterized A&P Assessment and plan (1) Shortness of breath: Most likely secondary to combination of COPD and acute decompensated congestive heart failure. Echocardiogram results appreciated. Poor echo windows. Clinically patient looks like in congestive heart failure. Oxygen supplementation keeping saturation over 90%. Appreciate CT chest results. Plan for diagnostic and therapeutic thoracentesis. Status: Acute (2) Congestive heart failure: IV Lasix 80 mg twice daily. Target 1 to 1-1/2 L negative within next 24 hours. Can add metolazone 5 mg 1 time if needed. Strict input output charting, daily weights. Telemetry. Status: Acute (3) Pleural effusion: Appreciate CT chest, CT abdomen pelvis results. High concerns for malignancy. Plan for ultrasound-guided thoracentesis?diagnostic and therapeutic. Status: Acute (4) Renal failure: Do not have baseline creatinine in system. Renal function stable. Electrode normality and anion gap normalized. Martínez catheter as above. Urine studies appreciated. Fena?0.1. Consistent with prerenal. CT abdomen pelvis to rule out obstructive nephropathy. Monitor BMP daily. Medical reconstruction done for nephrotoxic drugs. Status: Acute (5) Hypercalcemia: Given presentation cannot rule out underlying malignancy versus secondary to CKD Low PTH, vitamin D levels appropriate. Cortisol levels elevated. Check PTH RP Status: Acute (6) Hypothyroid: No past history of hypothyroidism. Not on levothyroxine. TSH more than 17. For now continue with IV levothyroxine. Check thyroid panel in AM. We will switch to oral levothyroxine accordingly. Status: Acute (7) Hypertension: Goal blood pressure less than 140/90 mmHg with mean over 65. Takes amlodipine and carvedilol twice daily at home. Hold off for now and continue to monitor. Status: Acute (8) Thrombocytopenia: Continue to monitor. Status: Acute (9) Lymphadenopathy, abdominal: Status: Acute (10) Metabolic acidosis: Resolved for now. Status: Acute Plan Given CT findings of extensive lymphadenopathy, possible peritoneal carcinomatosis there is a high concern for malignancy. Patient will need further work-up with diagnostic and therapeutic thoracentesis and paracentesis. Care discussed with GI. Given possibility of obstructive lesion at distal esophagus primary GI malignancy cannot be ruled out. Plan for EGD and colonoscopy. Replete folate. Replete potassium with oral supplements. Delirium: Most likely ing. Continuing home dose of Celexa. Will request for home dose of Rexulti. Start on Aricept for now. Frequent reorientation. If needed sitter. Analgesia: Tylenol as needed, morphine as needed Glycemic control: Not needed. Check A1c Nutrition: Renal cardiac diet CODE STATUS: Full code. Discussed in detail. Patient states he would like to be coded only 3 times and if he does not revive he does not want any further attempts. PUD prophylaxis: Famotidine for PUD prophylaxis DVT prophylaxis: Heparin 5000 every 12 hourly. Discharge planning: Home with caregiver once medically stable. Admit to CSU. This documentation was created by [employer] head start assistant teacher software. Every effort was made to ensure accuracy of head start assistant teacher. Any obvious errors or omissions should be clarified with the author of the document. Care plans with high possibility of malignancy with work-up requiring EGD, colonoscopy, Thora and paracentesis were discussed in detail with son at bedside. He is agreeable. All the questions were answered. Attestations Medical Necessity Statement*: Requires further hospitalization for management of shortness of breath, secondary to possible heart failure, pleural effusion viral malignancy is ruled out. Time Spent in Patient Care: Greater than 35 minutes Coding Level of Care Code Acute Trading Specialist for [facility] Fwd Diagnoses Shortness of breath R06.02 Congestive heart failure I50.9 Pleural effusion J90 Renal failure N19 Hypercalcemia E83.52 Hypothyroid E03.9 Hypertension I10 Thrombocytopenia D69.6 Lymphadenopathy, abdominal R59.0 Metabolic acidosis E87.2
[2021-10-11 17:29] LABS: Ionized Calcium 1.6 mmol/L (1.1-1.4)
--- NOTE | 2021-10-11 18:36 | PC.NURSE ---
Patients home medication Nicole is in his bin. Family brought it up today, 10/11. Patient has gradually become more confused and delirious throughout the day today. Patient is impulsive and ignores safety of self. Patient has a 1:1 sitter currently. Patient is not combative.
--- NOTE | 2021-10-11 18:43 | PC.NURSE ---
Patient continues to pull telemetry off. Is not compliant with monitoring
[2021-10-11] MEDS: ALPRAZolam 0.5 mg Tablet 1 MG PO (20:26)
[2021-10-11] MEDS: donepezil 5 MG Tablet 10 MG PO (20:26)
--- NOTE | 2021-10-11 23:44 | PC.NURSE ---
O2 SAT O2 sat 88% on RA with VS check. O2 applied at 2l per NC with sat to 92%.
[2021-10-12] VITALS (10 sets, daily range): BP systolic 116–143; BP diastolic 70–79; PULSE 86–101; RESP 18–26; TEMP 36.3–36.7; O2SAT 90–96
[2021-10-12 05:33] LABS: Basophils % 0.2 %; Eosinophils # 0.1 10^3/uL (0.0-0.8); Eosinophils % 1.1 %; Hemoglobin 12.8 g/dL (11.7-16.6); Lymphocytes # 2.5 10^3/uL (0.8-4.8); Lymphocytes % 21.7 %; Mean Corpuscular Hemoglobin 31.2 pg (28.0-34.0); Mean Corpuscular Volume 97.6 fl (80-94); Mean Platelet Volume 11.5 fL (7.4-10.4); Monocytes # 1.4 10^3/uL (0.2-0.9); Monocytes % 12.6 %; Neutrophils # 7.22 10^3/uL (1.8-7.7); Neutrophils % 63.8 %; Nucleated Red Blood Cells % 0 %; Platelet Count 100 10^3/cmm (130-400); Red Cell Distribution Width 16.3 % (12.1-15.1); White Blood Count 11.3 10^3/uL (4.0-10.0)
[2021-10-12] MEDS: FUROsemide 10 mg/mL SDV 10mL 80 MG IVP ×2 (05:41→17:38)
[2021-10-12 05:54] LABS: Alanine Aminotransferase 17 U/L (0-41); Albumin Level 2.7 g/dL (3.5-5.2); Alkaline Phosphatase 82 U/L (40-130); Anion Gap 20.3 (5-19); Aspartate Amino Transferase 25 U/L (0-40); Blood Urea Nitrogen 67 mg/dL (8-23); Carbon Dioxide 24 mmol/L (22-29); Chloride 99 mmol/L (98-107); Globulin 3.1 g/dL (1.3-4.6); Glomerular Filtration Rate 35.5 mL/min (90-130); Glucose 97 mg/dL (65-115); Osmolality Calculated 309 mOsm/kg (285-295); Potassium 3.3 mmol/L (3.5-5.1); Sodium 140 mmol/L (136-145); Total Bilirubin 0.4 mg/dL (0.15-1.2); Total Protein 5.8 g/dL (6.6-8.7)
--- NOTE | 2021-10-12 06:41 | PC.NURSE ---
SHIFT SUMMARY Has rested well tonight after he received Xanax dose with HS meds. Finished Go-Lytely prep last evening and has had several watery BM's. Started dark green in color and the last couple were just a very pale green water. NPO after midnight. Is pleasant with some confusion. Has a very harsh coarse dry cough. SOB with exertion. O2 in place at 2l per NC. Denies pain. Good urine output per Martínez
--- NOTE | 2021-10-12 07:28 | P.CONIM_ITS ---
Providers/Reason For Consult Consulting Physician/Specialty*: Endoscopist Reason for Consult*: Clear upper and lower GI tract due to probable malignancy Attending Physician: Vijay Phillip MD Primary Care Provider: Josemanuel Negrete DO History of Present Illness History of Present Illness Chandan Tirado is a 66 year old male Review of Systems General: Reports: 10 or more systems reviewed and unremarkable except in HPI and below Const: Denies: fever(s) Card: Denies: chest pain or irregular heart rhythm Resp: Denies: dyspnea GI: Denies: hematemesis, coffee ground emesis, hematochezia or melena Medications/Allergies Home Medications Medication Instructions Recorded Confirmed Last Taken Type albuterol sulfate 90 mcg/actuation 2 puff inhalation Q6H PRN 10/10/21 10/10/21 Unknown History aerosol inhaler Shortness Of Breath alprazolam 1 mg tablet 1 mg PO BEDTIME PRN Anxiety 10/10/21 10/10/21 Unknown Hi story amlodipine 5 mg tablet 5 mg PO DAILY 10/10/21 10/10/21 10/10/21 History brexpiprazole 0.5 mg tablet 0.5 mg PO DAILY 10/10/21 10/10/21 10/09/21 History (Rexulti) carvedilol 12.5 mg tablet 12.5 mg PO BID 10/10/21 10/10/21 10/09/21 History citalopram 40 mg tablet 40 mg PO DAILY 10/10/21 10/10/21 10/09/21 History fluticasone propionate 115 2 puff inhalation Q12H 10/10/21 10/10/21 10/10/21 History mcg-salmeterol 21 mcg/actuation HFA inhaler (Advair HFA) fluticasone propionate 50 2 spray intranasal BID PRN Nasal 10/10/21 10/10/21 Unknown History mcg/actuation nasal Congestion spray,suspension gabapentin 100 mg capsule 100 mg PO BID 10/10/21 10/10/21 10/09/21 History ibuprofen 800 mg tablet 800 mg PO BID PRN Pain 10/10/21 10/10/21 10/10/21 Histor y prazosin 1 mg capsule 1 - 3 mg PO BEDTIME 10/10/21 10/10/21 10/09/21 History tamsulosin 0.4 mg capsule 0.8 mg PO DAILY 10/10/21 10/10/21 10/09/21 History Allergies Allergy/AdvReac Type Severity Reaction Status Date / Time mold Allergy Intermediate unknown Uncoded 10/10/21 13:12 Current Medications Generic Name Dose Route Start Last Admin Trade Name Ositoq PRN Reason Stop Dose Admin Albuterol/Ipratropium 3 ml 10/10/21 21:40 10/11/21 20:45 Ipratropium-Albuterol 3 Ml Neb INHALATION 3 ml Q6H PRN Administration SHORTNESS OF BREATH Alprazolam 1 mg 10/10/21 19:44 10/11/21 20:26 Alprazolam 0.5 Mg Tablet PO 1 mg BEDTIME PRN Administration Anxiety Budesonide 0.5 mg 10/10/21 20:00 10/11/21 20:45 Budesonide 0.5 Mg/2 Ml Neb INHALATION 0.5 mg BID.RESPIRATORY SREEDHAR Administration Citalopram Hydrobromide 20 mg 10/11/21 09:00 10/11/21 08:08 Citalopram 20 Mg Tablet PO 20 mg DAILY SREEDHAR Administration Docusate Sodium 100 mg 10/10/21 19:36 10/12/21 07:06 Docusate Sodium 100 Mg Capsule PO Not Given BID SREEDHAR Donepezil HCl 10 mg 10/11/21 21:00 10/11/21 20:26 Donepezil 5 Mg Tablet PO 10 mg BEDTIME SREEDHAR Administration Famotidine 20 mg 10/10/21 19:36 10/11/21 17:31 Famotidine 20 Mg/2 Ml Inj IVP 20 mg Q12H SREEDHAR Administration Ferrous Gluconate 324 mg 10/10/21 19:36 10/12/21 07:06 Ferrous Gluconate 324 Mg Tablet PO Not Given BIDWM SREEDHAR Folic Acid 1 mg 10/11/21 09:00 10/12/21 07:07 Folic Acid 1 Mg Tablet PO Not Given BID SREEDHAR Furosemide 80 mg 10/11/21 06:30 10/12/21 05:41 Furosemide 10 Mg/Ml Sdv 10ml IVP 80 mg Q12H SREEDHAR Administration Gabapentin 100 mg 10/10/21 19:36 10/11/21 17:49 Gabapentin 100 Mg Capsule PO 100 mg BID SREEDHAR Administration Heparin Sodium (Porcine) 5,000 unit 10/10/21 19:36 10/12/21 07:05 Heparin 5,000 Unit/Ml Inj 1 Ml SUBCUT Not Given Q12H SREEDHAR Levothyroxine Sodium 60 mcg 10/11/21 09:00 10/11/21 09:59 Levothyroxine 100 Mcg Sdv IVP 60 mcg DAILY SREEDHAR Administration Metolazone 5 mg 10/11/21 09:00 10/11/21 08:08 Metolazone 5 Mg Tablet PO 5 mg DAILY SREEDHAR Administration Non-Formulary Medication 0.5 mg 10/11/21 16:30 10/11/21 17:49 Brexpiprazole [Rexulti] PO 0.5 mg DAILY SREEDHAR Administration Tamsulosin HCl 0.8 mg 10/11/21 09:00 10/11/21 08:08 Tamsulosin 0.4 Mg Capsule PO 0.8 mg DAILY SREEDHAR Administration PFSH Acute PFSH: Medical History BPH (benign prostatic hyperplasia) Depression Hypertension Hypothyroid Pneumothorax Renal failure Rib fracture Vitals/I&O/Wt Last Vital Signs Temp 98.1 F 10/12/21 03:42 Pulse 95 10/12/21 05:53 Resp 22 H 10/12/21 03:42 BP 143/79 10/12/21 03:42 Pulse Ox 93 10/12/21 03:42 O2 Del Method 10/12/21 03:42 O2 Flow Rate 2 10/12/21 03:42 10/11/21 10/12/21 10/12/21 22:59 06:59 14:59 Intake Total 120 / 585 Output Total 300 / 700 700 / 1400 Balance -180 / -115 -700 / -815 Weight last 48 hrs Weight 192 lb 9.6 oz Weight 194 lb Weight 197 lb Physical Exam Const: COMMON NORMALS: no acute distress and patient oriented x3 GENERAL APPEARANCE: cooperative, comfortable and well developed HENMT: COMMON NORMALS: normocephalic and moist oral mucous membranes HEAD & SCALP: normocephalic Chest: COMMONS NORMALS: normal inspection of the chest Resp: COMMON NORMALS: normal respiratory effort and clear to auscultation bilaterally AUSCULTATION: clear to auscultation bilaterally Cardio: COMMON NORMALS: regular rate, regular rhythm, No gallops present (Cardio), No murmurs present (Cardio) and No rub (Cardio) RATE: regular rate RHYTHM: regular rhythm GI: OTHER: Mildly tender to palpation, generalized. Bowel sounds are positive. Extremity: COMMON NORMALS: normal to inspection Neuro: COMMON NORMALS: patient oriented x3 and no focal motor deficits Skin: COMMON NORMALS: no rashes or lesions noted GENERAL SKIN EXAM: no rashes or lesions noted Urinary Catheter Management: Martínez: Cath Placed During This Visit: yes Reason for Continuing Indwelling Catheter: Other Urinary Catheter Date of Insertion: 10/10/21 Urinary Catheter Time of Insertion: 18:39 Data : 10/12/21 05:16 10/12/21 05:16 Micro: Microbiology 10/10/21 18:42 Bacterial Antigens - Final Urine Kidney A&P Assessment and plan (1) Lymphadenopathy, abdominal: I had the opportunity to discuss with the patient the indications for an EGD and a colonoscopy. We discussed the risks of bleeding, perforation, and sedation associated with the procedure. He understands that given his current clinical condition his risks are higher than the average person who has his procedure done. He also understands that this is a less invasive way to find an etiology for the lymphadenopathy, and probable malignancy, noted on his CAT scan. He has no further questions and wishes to proceed. Because of his renal concerns, [facility] Status: Acute Coding Level of Care Code Acute Cleaner Housekeeping for [facility] Fwd Diagnoses Lymphadenopathy, abdominal R59.0
[2021-10-12] MEDS: sodium chloride 0.9% 1,000 ML 30 ML IV (07:52)
--- NOTE | 2021-10-12 08:21 | PC.NURSE ---
Patient remains confused in GI lab. Climbing over side of bed rails, trouble to reorient, not using call light, pulling on melendez cath and tangled in IV tube and oxygen. Obtained consent for procedure and anesthesia from son Scottie Tirado. Called [facility] and spoke with Claudia about need for 1:1 sitter again. Claudia to call for patient.
--- NOTE | 2021-10-12 08:29 | P.ANESASSM_ITS ---
Pre-Anesthetic Assessment Height/Weight: Height 1.83 m Weight 87.362 kg Temp Pulse Resp BP Pulse Ox O2 Del Method O2 Flow Rate 97.8 F 95 18 131/74 91 2 10/12/21 07:42 10/12/21 07:42 10/12/21 07:42 10/12/21 07:42 10/12/21 07:42 10/12/21 07:42 10/12/21 07:42 Operation Date: 10/12/21 08:15 Proposed Procedures p EGD/COLON(Not Applicable) - Tariq Michel MD s Colonoscopy(Not Applicable) - Tariq Michel MD Familial anesthetic complications: None Was Beta Sergei taken within 24 hours: N/A Was Clonidine taken within 24 hours: N/A Last intake: . 8 hrs Social No alcohol and No tobacco Exam alert, oriented x 3, clear to auscultation bilaterally and regular rate & rhythm consent obtained from family d/t some confusion Airway Mallampati: Class II Dentition: full Pulmonary Chronic Obstructive Pulmonary Disease Pleural effusion, orthopnea, SOB (recent) CV/HEM Congestive Heart Failure (acute) and Hypertension Chronic Renal Failure GI carcinomatosis Metabolic Thyroid Disease Anesthetic Plan ASA status: 4 Anesthesia: MAC Risk of > 500 ml blood loss (7ml/kg in children): No Medications/Allergies Home Medications Medication Instructions Recorded Confirmed Last Taken Type albuterol sulfate 90 mcg/actuation 2 puff inhalation Q6H PRN 10/10/21 10/10/21 Unknown History aerosol inhaler Shortness Of Breath alprazolam 1 mg tablet 1 mg PO BEDTIME PRN Anxiety 10/10/21 10/10/21 Unknown History amlodipine 5 mg tablet 5 mg PO DAILY 10/10/21 10/10/21 10/10/21 History brexpiprazole 0.5 mg tablet 0.5 mg PO DAILY 10/10/21 10/10/21 10/09/21 History (Rexulti) carvedilol 12.5 mg tablet 12.5 mg PO BID 10/10/21 10/10/21 10/09/21 History citalopram 40 mg tablet 40 mg PO DAILY 10/10/21 10/10/21 10/09/21 History fluticasone propionate 115 2 puff inhalation Q12H 10/10/21 10/10/21 10/10/21 History mcg-salmeterol 21 mcg/actuation HFA inhaler (Advair HFA) fluticasone propionate 50 2 spray intranasal BID PRN Nasal 10/10/21 10/10/21 Unknown History mcg/actuation nasal Congestion spray,suspension gabapentin 100 mg capsule 100 mg PO BID 10/10/21 10/10/21 10/09/21 History ibuprofen 800 mg tablet 800 mg PO BID PRN Pain 10/10/21 10/10/21 10/10/21 History prazosin 1 mg capsule 1 - 3 mg PO BEDTIME 10/10/21 10/10/21 10/09/21 History tamsulosin 0.4 mg capsule 0.8 mg PO DAILY 10/10/21 10/10/21 10/09/21 History Allergies Allergy/AdvReac Type Severity Reaction Status Date / Time mold Allergy Intermediate unknown Uncoded 10/10/21 13:12 Current Medications Generic Name Dose Route Start Last Admin Trade Name Freq PRN Reason Stop Dose Admin Albuterol/Ipratropium 3 ml 10/10/21 21:40 10/11/21 20:45 Ipratropium-Albuterol 3 Ml Neb INHALATION 3 ml Q6H PRN Administration SHORTNESS OF BREATH Alprazolam 1 mg 10/10/21 19:44 10/11/21 20:26 Alprazolam 0.5 Mg Tablet PO 1 mg BEDTIME PRN Administration Anxiety Budesonide 0.5 mg 10/10/21 20:00 10/11/21 20:45 Budesonide 0.5 Mg/2 Ml Neb INHALATION 0.5 mg BID.RESPIRATORY SREEDHAR Administration Citalopram Hydrobromide 20 mg 10/11/21 09:00 10/11/21 08:08 Citalopram 20 Mg Tablet PO 20 mg DAILY SREEDHAR Administration Docusate Sodium 100 mg 10/10/21 19:36 10/12/21 07:06 Docusate Sodium 100 Mg Capsule PO Not Given BID SREEDHAR Donepezil HCl 10 mg 10/11/21 21:00 10/11/21 20:26 Donepezil 5 Mg Tablet PO 10 mg BEDTIME SREEDHAR Administration Famotidine 20 mg 10/10/21 19:36 10/11/21 17:31 Famotidine 20 Mg/2 Ml Inj IVP 20 mg Q12H SREEDHAR Administration Ferrous Gluconate 324 mg 10/10/21 19:36 10/12/21 07:06 Ferrous Gluconate 324 Mg Tablet PO Not Given BIDWM SREEDHAR Folic Acid 1 mg 10/11/21 09:00 10/12/21 07:07 Folic Acid 1 Mg Tablet PO Not Given BID SREEDHAR Furosemide 80 mg 10/11/21 06:30 10/12/21 05:41 Furosemide 10 Mg/Ml Sdv 10ml IVP 80 mg Q12H SREEDHAR Administration Gabapentin 100 mg 10/10/21 19:36 10/11/21 17:49 Gabapentin 100 Mg Capsule PO 100 mg BID SREEDHAR Administration Heparin Sodium (Porcine) 5,000 unit 10/10/21 19:36 10/12/21 07:05 Heparin 5,000 Unit/Ml Inj 1 Ml SUBCUT Not Given Q12H SREEDHAR Sodium Chloride 1,000 mls @ 30 mls/hr 10/12/21 07:45 10/12/21 07:52 Sodium Chloride 0.9% IV 10/13/21 07:44 30 mls/hr .Q24H SREEDHAR Administration Levothyroxine Sodium 60 mcg 10/11/21 09:00 10/11/21 09:59 Levothyroxine 100 Mcg Sdv IVP 60 mcg DAILY SREEDHAR Administration Metolazone 5 mg 10/11/21 09:00 10/11/21 08:08 Metolazone 5 Mg Tablet PO 5 mg DAILY SREEDHAR Administration Non-Formulary Medication 0.5 mg 10/11/21 16:30 10/11/21 17:49 Brexpiprazole [Rexulti] PO 0.5 mg DAILY SREEDHAR Administration Tamsulosin HCl 0.8 mg 10/11/21 09:00 10/11/21 08:08 Tamsulosin 0.4 Mg Capsule PO 0.8 mg DAILY SREEDHAR Administration PFS Anesthesia Medical History BPH (benign prostatic hyperplasia) Depression Hypertension Hypothyroid Pneumothorax Renal failure Rib fracture Data Anesthesia : 10/12/21 05:16 10/12/21 05:16 Short CBC 10/10/21 10/11/21 10/12/21 Range/Units 23:51 02:22 05:16 WBC 10.3 H 10.1 H 11.3 H (4.0-10.0) 10^3/uL Hgb 12.7 13.0 12.8 (11.7-16.6) g/dL Hct 37.7 L 38.8 L 40.0 L (42.0-52.0) % MCV 94.5 H 96.0 H 97.6 H (80-94) fl Plt Count 97 L 95 L 100 L (130-400) 10^3/cmm Neut % (Auto) 64.3 64.9 63.8 % Neut # (Auto) 6.61 6.52 7.22 (1.8-7.7) 10^3/uL BMP 10/10/21 10/10/21 10/11/21 18:31 19:47 02:22 Sodium Cancelled 133 L 136 Potassium Cancelled 3.2 L 2.9 L Chloride Cancelled 94 L 96 L Carbon Dioxide Cancelled 21 L 24 BUN Cancelled 67 H 66 H Creatinine Cancelled 2.2 H 2.2 H Glucose Cancelled 91 91 Calcium Cancelled 11.7 H 11.6 H 10/11/21 10/12/21 02:22 05:16 Sodium Cancelled 140 Potassium Cancelled 3.3 L Chloride Cancelled 99 Carbon Dioxide Cancelled 24 BUN Cancelled 67 H Creatinine Cancelled 1.9 H Glucose Cancelled 97 Calcium Cancelled 12.0 H Liver Function 10/11/21 10/12/21 Range/Units 02:22 05:16 Total Bilirubin 0.6 0.4 (0.15-1.2) mg/dL AST 24 25 (0-40) U/L ALT 18 17 (0-41) U/L Alkaline Phosphatase 79 82 (40-130) U/L Albumin 2.7 L 2.7 L (3.5-5.2) g/dL Urine 10/10/21 Range/Units 18:42 Urine Color Yellow (Yellow) Urine Appearance Clear (CLEAR) Urine pH 5 (5-7) Ur Specific [place] 1.025 (1.005-1.030) Urine Protein Trace (Negative) Urine Glucose (UA) Norm (Normal) Urine Ketones Negative (Negative) Urine Nitrate Negative (Negative) Urine Bilirubin Neg (Negative) Ur Leukocyte Esterase Negative (Negative) Urine RBC 5-10 H (0-2) /hpf Urine WBC 5-10 H (0-5) /hpf Coags 10/10/21 10/10/21 17:19 17:19 PT 15.70 H INR 1.22 H APTT 28.2 D-Dimer <= 0.27 Microbiology 10/10/21 18:42 Bacterial Antigens - Final Urine Kidney Cardiac Studies: Echocardiogram 10/10/21
--- NOTE | 2021-10-12 09:56 | PM.MISC ---
Miscellaneous Note Purpose of Documentation: Post endoscopy note Note: The colonoscopy was only notable for internal hemorrhoids. His duodenum had multiple ulcers, including one just distal to the bulb which is concerning for malignancy. He also had an inflamed papilla versus a polyp in the second portion of his duodenum as well. He also had multiple ulcers in his stomach that appeared benign.
--- NOTE | 2021-10-12 10:03 | US_ITS ---
WS: [id number] Abdominal ultrasound, limited. History: Evaluate for ascites. Comparison: None. All 4 quadrants are imaged by ultrasound to evaluate for ascites. No significant amount of ascites wi thin the peritoneal cavity. Small RIGHT pleural effusion. US/US abdomen limited [id number] IMPRESSION: No ascites.
--- NOTE | 2021-10-12 10:03 | US_ITS ---
WS: [id number] ULTRASOUND-GUIDED THORACENTESIS CLINICAL INFORMATION: shortness of breath COMPARISON: None. PROCEDURE: Informed consent: The risks, benefits, and alternatives of the procedure were discussed with the karen ent. Verbal and written consent was obtained. Timeout: A timeout was performed to confirm the correct patient, procedure, and site. Site: RIGHT Preparation: A suitable skin site was identified. The patient was prepped and draped in usual sterile fashion. Lidocaine 1% was used for local anesthesia. Catheter: 4 [place] One-Step catheter. Fluid Volume: 1000 ml Color: Jessica Fluid sent the lab for further analysis. Complications: None. / thoracentesis [id number] IMPRESSION: Uncomplicated ultrasound-guided RIGHT thoracentesis with removal of 1000 cc ple ural fluid.
--- NOTE | 2021-10-12 10:26 | PC.NURSE ---
Gave report to PROSPER Berry regarding edema of right hand, and that pt has been trying to climb out of his bed. Kristi voiced understanding.
[2021-10-12] MEDS: famotidine 20 mg/2 mL INJ IVP (10:47)
--- NOTE | 2021-10-12 13:25 | ANE.PACU2 ---
Inpatient post-anesthesia follow up: Airway intact: Yes Vital signs: Temperature 97.3 F Pulse Rate 91 Respiratory Rate 26 Blood Pressure 129/74 Pulse Oximetry [6 Minute 98 Exercise Test on R oom Air] Pulse Oximetry [Ro om Air at 92 Rest] Pulse Oximetry 90 Oxygen Delivery Me thod Nasal Cannula Oxygen Flow Rate 2 Fraction of Inspir ed Oxygen Hydration adequate: Yes Nausea and vomiting: No Pain level: 1 Mental status: Baseline
[2021-10-12 13:48] LABS: Free T4 Free Thyroxine 0.79 ng/dL (0.82-1.77); Thyroid Stimulating Hormone 12.24 uIU/mL (0.27-4.20)
--- NOTE | 2021-10-12 14:58 | XR_ITS ---
WS: [id number] CHEST XRAY TECHNIQUE: Portable chest. CLINICAL INFORMATION: thoracentesis COMPARISON: October 10, 2021 FINDINGS: Heart: Cardiomegaly. Tortuous thoracic aorta. Lungs: Post RIGHT thoracentesis. Improved RIGHT pleural effusion with persistent pleural fluid. Small LEFT pleural effusion. Bibasilar atelectasis. No pneumothorax. Bones: Normal visualized bony structures. XR/XR chest 1V portable [id number] IMPRESSION: No pneumothorax status post RIGHT thoracentesis.
--- NOTE | 2021-10-12 15:05 | US_ITS ---
WS: [id number] ULTRASOUND GUIDED BIOPSY RIGHT INGUINAL LYMPH NODE/NODULE INDICATION: Peritoneal carcinomatosis. TECHNIQUE: Ultrasound-guided biopsy RIGHT inguinal lymph node/nodule. The procedure including risks, benefits, and complications were discussed the patient who agreed to proceed. Using sterile technique patient was prepped and draped in usual sterile fashion. Timeout was performed. After 1% lidocaine, using ultrasound guidance, 4-5 18-gauge cores were obtained of the RIGHT inguinal lymph node/nodule. No immediate complications. Pathology is pending. The sampled lymph node/nodule was well circumscribe d with a very firm texture. US/US biopsy lymph node [id number] IMPRESSION: Uncomplicated ultrasound-guided biopsy RIGHT inguinal lymph node/no dule
[2021-10-12 15:38] LABS: Body Fluid Polynuclear #Cells 0.195; Body Fluid WBC 7446 /uL; Monocytes # Body Fluid 7.251
[2021-10-12 15:43] LABS: Thyroid Peroxidase Antobodies <1 IU/mL (<9)
[2021-10-12 15:55] LABS: Apprearance, Body Fluid CLOUDY; Color, Body Fluid RED
[2021-10-12 16:18] LABS: Cyto Order Verification Order Verified; PATH Referral YES
--- NOTE | 2021-10-12 16:35 | PM.DCS ---
Discharge Providers Date of Admission: 10/10/21 17:49 Date of Discharge: October 12, 2021 Attending Provider at Admission: Vijay Phillip MD Attending Provider at Discharge: Vijay Phillip MD Primary Care Provider: Josemanuel Negrete DO Diagnoses at Discharge Discharge Diagnosis (1) Lymphadenopathy, abdominal: Status: Acute Reason for Visit Reason for Visit: abnormal labs/xrays Hospital Course Hospital Course Chandan Tirado is a 66 year old male with past medical history of hypertension, heart murmur, history of rib fracture and a possible punctured lung after trauma around 6 years ago, COPD who presents to the ER today because of difficulty in breathing which has been getting worse for over a month month and a half.? Symptoms associated with orthopnea and PND.? Currently after the patient he is not even able to talk without feeling short of breath.? He is also complaining of swelling which has been increasing gradually over the last 3 weeks in his lower limbs.? He feels numbness from the waist down.? Denies any loss of bowel or bladder functions.? Denies any fever. As per patient he has lost more than 30 to 40 pounds of weight within the last 2 to 3 months. He has been worked up as an outpatient by his primary care provider for the same. Today CEA, PSA was sent out. In the ER he was found to have bilateral pleural effusion, saturating 98% on room air but desaturating on lying down, short of breath, blood work showed hemoglobin of 13.7, platelet count of 102, potassium of 3.4, BUN of 68, creatinine of 2.3, calcium of 12.1, proBNP of 1169, TSH of 17.43. On admission CT chest and pelvis was done which was concerning for bilateral pleural effusion, more on the right,, mild ascites, esophageal constriction with the possibility of a mass versus secondary to chronic GERD, extensive lymphadenopathy and changes concerning for peritoneal carcinomatosis with peritoneal caking. On admission patient was found to be in mild fluid overload for which he was started on aggressive IV diuresis given his presentation of renal dysfunction which is most likely chronic as he did not have any baseline creatinine for the patient. He responded well to the treatment and diuresed well. Patient was around 1-1/2 L negative by the time of discharge. On admission patient was also found to have severe hypothyroidism. Cortisol levels were within normal limits. He was started on levothyroxine. He was also found to have hypercalcemia. Blood work was concerning for low PTH. His calcium levels remained stable during hospitalization. There is a concern for hypercalcemia secondary to malignancy. PTH RP is also sent out. Given high concerns for malignancy extensive work-up was done. Patient underwent EGD and colonoscopy given concern of esophageal constriction. Colonoscopy was unremarkable during EGD he had multiple duodenal ulcer with 1 ulcer near duodenal bulb concerning for malignancy. Biopsy was sent out. Thoracentesis was also done and 1 L of fluid was drained. Patient also had lymph node biopsy done. Extensive work-up including cytology report from pleural fluid, lymph node and EGD has been sent out. During hospitalization there was a concern for patient's delirium secondary to sundowning. Discharge plan was discussed in detail with patient's son and [id number]. They agreed with early discharge for the patient to prevent worsening of his delirium. Home health has been arranged. Meanwhile patient will be living with his son. Physical Exam Narrative: General: No acute distress, AO x3, pleasant HEENT: PERRLA, pupils bilaterally equal and reactive Chest: Bilateral bronchial breath sounds, decreased air entry bilateral lower zone, rhonchi diffuse all over the lung jefferson, fine crackles bilaterally lower zone CVS: S1-S2 regular, early diastolic murmur present at aortic area radiating to apex, no tachycardia, no gallops, no rubs Abdomen: Soft, nontender, no organomegaly, bowel sounds present Neuro: No focal deficits, no facial deformity, AO x3, power 5/5 in all limbs Extremities: Bilateral 2+ pitting edema up to the knees Urinary Catheter Management: Martínez: Cath Placed During This Visit: yes Reason for Continuing Indwelling Catheter: Other Urinary Catheter Date of Insertion: 10/10/21 Urinary Catheter Time of Insertion: 18:39 Discharge Data Studies Completed and Pending Completed Studies During Hospitalization Category Date Time Status CT chest abdomen pelvis [[place] [id number] Cat Scan 10/10/21 17:56 Completed ] Stat CT lumbar spine wo con* [id number] Stat Cat Scan 10/10/21 17:56 Completed CV. echo wo/w contrast [id number] Routine Ultrasound 10/10/21 17:55 Completed US abdomen limited [id number] Routine Ultrasound 10/12/21 10:03 Completed US thyroid [id number] Routine Ultrasound 10/11/21 06:25 Completed Pending at discharge Category Date Time Status CXRP [XR chest 1V portable [id number]] Urgent Exams 10/12/21 14:58 Taken Albumin Body Fluid Routine Lab 10/12/21 15:00 Results Amylase Body Fluid Routine Lab 10/12/21 15:00 Results Anaerobic Culture Routine Lab 10/12/21 15:00 Received Body Fluid Analysis Routine Lab 10/12/21 15:00 Results Body Fluid Culture & GS Routine Lab 10/12/21 15:00 Received Body Fluid Specific Rosalie Routine Lab 10/12/21 15:00 Results Cholesterol Body Fluid Routine Lab 10/12/21 15:00 Results Cyto Order Verification Routine Lab 10/12/21 15:00 Results Fluid Alkaline Phos. Routine Lab 10/12/21 15:00 Results Fungal Culture not HR/SK/BL Routine Lab 10/12/21 15:00 Received Glucose Body Fluid Routine Lab 10/12/21 15:00 Results H. Pylori / LOPEZ Test Routine Lab 10/12/21 09:22 Ordered LDH Body Fluid Routine Lab 10/12/21 15:00 Results Mycobacteria, Culture w/Fluor Routine Lab 10/12/21 15:00 Received PTH Related [PTH Related Peptide (Protein)] Routine Lab 10/11/21 16:07 Received Total Protein Pleural Fluid Routine Lab 10/12/21 15:00 Results Triglycerides Body Fluid Routine Lab 10/12/21 15:00 Results Uric Acid Body Fluid Routine Lab 10/12/21 15:00 Results Vitamin D 1,25 Dihydroxy Routine Lab 10/10/21 19:47 Received pH Body Fluid Routine Lab 10/12/21 15:00 Results Cytology [PTH] Routine Pth 10/12/21 14:54 Received Pathology: Surgical [PTH] Routine Pth 10/12/21 09:40 Received US biopsy lymph node [id number] Routine Ultrasound 10/12/21 15:05 Taken US thoracentesis [id number] Routine Ultrasound 10/12/21 10:03 Taken Radiology Impressions Chest/Abdomen/Pelvis CT 10/10/21 17:56 IMPRESSION: 1. Bilateral pleural effusions. Right perihilar and basilar consolidations. See discussion above. No ground-glass opacity. No obvious pulmonary nodules. Pleural metastasis may be present in this setting given abnormalities in the abdomen and pelvis. 2. Somewhat limited assessment due to lack of IV contrast however no obvious enlarged mediastinal adenopathy. Mildly enlarged cardiophrenic adenopathy is probably present. 3. Diffuse esophageal dilatation. See discussion above. 4. Minimal ascending aortic dilatation at 4.1 cm. IMPRESSION: 1. Findings suggestive of extensive peritoneal carcinomatosis with omental caking. Confluent soft tissue density suspicious for adenopathy in the superior aortocaval region. No obvious source of primary malignancy on this exam. 2. Otherwise somewhat limited assessment due to lack of contrast. No obvious bowel obstruction, free air or pneumatosis. 3. Small amount of abdominopelvic ascites. ADDENDUM: 10/10/211957 Addendum- Nonobstructing left lower pole renal calculus measuring 2 x 2 mm. Additional mildly enlarged aortocaval adenopathy is also present. Lumbar Spine CT 10/10/21 17:56 IMPRESSION: 1. No acute spine fracture or subluxation. No severe stenosis related to osseous elements. 2. Soft tissue/visceral findings as described on abdominopelvic CT exam. Thyroid Ultrasound 10/11/21 06:25 IMPRESSION: Unremarkable thyroid. Abdomen Ultrasound 10/12/21 10:03 IMPRESSION: No ascites. Echocardiogram: CONCLUSIONS ?Very limited study with echo contrast utilized.? Left?ventricular size and function probably within normal limits?though even with contrast it is difficult to see.? Irregular?rhythm prevents diastology evaluation.? Ejection fraction is?probably within normal limits.? Wall motion disturbances cannot?be determined. ?There are no prior echocardiogram studies to compare. ?Dr. Oswald Case MD ?(Electronically Signed) ?Final Date:? ? ? 10 October 2021 ? 22:25 Laboratory Results WBC 11.3 10^3/uL (4.0-10.0) H 10/12/21 05:16 RBC 4.10 10^6/uL (4.1-5.3) 10/12/21 05:16 Hgb 12.8 g/dL (11.7-16.6) 10/12/21 05:16 Hct 40.0 % (42.0-52.0) L 10/12/21 05:16 MCV 97.6 fl (80-94) H 10/12/21 05:16 MCH 31.2 pg (28.0-34.0) 10/12/21 05:16 MCHC 32.0 g/dL (30.0-36.0) 10/12/21 05:16 RDW 16.3 % (12.1-15.1) H 10/12/21 05:16 Plt Count 100 10^3/cmm (130-400) L 10/12/21 05:16 MPV 11.5 fL (7.4-10.4) H 10/12/21 05:16 Neut % (Auto) 63.8 % 10/12/21 05:16 Lymph % (Auto) 21.7 % 10/12/21 05:16 Hickman % (Auto) 12.6 % 10/12/21 05:16 Eos % (Auto) 1.1 % 10/12/21 05:16 Baso % (Auto) 0.2 % 10/12/21 05:16 Neut # (Auto) 7.22 10^3/uL (1.8-7.7) 10/12/21 05:16 Lymph # (Auto) 2.5 10^3/uL (0.8-4.8) 10/12/21 05:16 Hickman # (Auto) 1.4 10^3/uL (0.2-0.9) H 10/12/21 05:16 Eos # (Auto) 0.1 10^3/uL (0.0-0.8) 10/12/21 05:16 Baso # (Auto) 0.0 10^3/uL (0.0-0.1) 10/12/21 05:16 Nucleated RBC % (auto) 0 % 10/12/21 05:16 Nucleated RBCs # 0.0 /100WBC 10/12/21 05:16 Differential Comment Yes 10/12/21 15:00 PT 15.70 SECONDS (12.1-14.9) H 10/10/21 17:19 INR 1.22 (0.8-1.2) H 10/10/21 17:19 APTT 28.2 SECONDS (23.9-36.7) 10/10/21 17:19 D-Dimer <= 0.27 ug/mIFEU (0-0.59) 10/10/21 17:19 Sodium 140 mmol/L (136-145) 10/12/21 05:16 Potassium 3.3 mmol/L (3.5-5.1) L 10/12/21 05:16 Chloride 99 mmol/L (98-107) 10/12/21 05:16 Carbon Dioxide 24 mmol/L (22-29) 10/12/21 05:16 Anion Gap 20.3 (5-19) H 10/12/21 05:16 BUN 67 mg/dL (8-23) H 10/12/21 05:16 Creatinine 1.9 mg/dL (0.7-1.2) H 10/12/21 05:16 GFR Calculation 35.5 mL/min (90-130) L 10/12/21 05:16 Glucose 97 mg/dL (65-115) 10/12/21 05:16 Estimat Average Glucose 97 10/11/21 02:22 Hemoglobin A1c 5.0 % (4.0-6.0) 10/11/21 02:22 Calculated Osmolality 309 mOsm/kg (285-295) H 10/12/21 05:16 Calcium 12.0 mg/dL (8.5-10.5) H 10/12/21 05:16 Ionized Calcium Jacek 1.6 mmol/L (1.1-1.4) H 10/11/21 16:07 Magnesium 2.2 mg/dL (1.7-2.3) 10/11/21 02:22 Iron 55 ug/dL (59-158) L 10/10/21 19:47 TIBC 184 mcg/dl 10/10/21 19:47 % Saturation 29.8 % (20-50) 10/10/21 19:47 Unsat Iron Binding 129 ug/dL (112-347) 10/10/21 19:47 Total Bilirubin 0.4 mg/dL (0.15-1.2) 10/12/21 05:16 AST 25 U/L (0-40) 10/12/21 05:16 ALT 17 U/L (0-41) 10/12/21 05:16 Alkaline Phosphatase 82 U/L (40-130) 10/12/21 05:16 Total Protein 5.8 g/dL (6.6-8.7) L 10/12/21 05:16 Albumin 2.7 g/dL (3.5-5.2) L 10/12/21 05:16 Globulin 3.1 g/dL (1.3-4.6) 10/12/21 05:16 Triglycerides 546 mg/dL (0-150) H 10/11/21 02:22 Cholesterol 222 mg/dL (0-200) H 10/11/21 02:22 LDL Cholesterol Direct 78 mg/dL (0-100) 10/11/21 02:22 LDL Cholesterol, Calc Not Reportable 10/11/21 02:22 Total VLDL Cholesterol 109 mg/dL (0-30) H 10/11/21 02:22 HDL Cholesterol 10 mg/dL (60-100) L 10/11/21 02:22 Cholesterol/HDL Ratio 22.20 mg/dL (1.0-5.00) H 10/11/21 02:22 Vitamin B12 404 pg/mL (232-1245) 10/10/21 19:47 25-OH Vitamin D Total 90 ng/mL (30-100) 10/10/21 19:47 Folate < 2.0 ng/mL (4.5-32.2) L 10/10/21 19:47 Procalcitonin 0.91 ng/mL (0-0.5) H 10/10/21 19:47 TSH 12.24 uIU/mL (0.27-4.20) H 10/12/21 05:16 Free T4 0.79 ng/dL (0.82-1.77) L 10/12/21 05:16 Free T3 0.5 PG/ML (2.0-4.4) L 10/10/21 19:47 PTH Intact 4.3 pg/mL (15-65) L 10/10/21 19:47 Calcium (PTH Intact) 11.9 mg/dL (8.5-10.5) H 10/10/21 19:47 Random Cortisol 22.58 ug/dL (2.47-19.5) H 10/11/21 02:22 Urine Color Yellow (Yellow) 10/10/21 18:42 Urine Appearance Clear (CLEAR) 10/10/21 18:42 Urine pH 5 (5-7) 10/10/21 18:42 Ur Specific Rosalie 1.025 (1.005-1.030) 10/10/21 18:42 Urine Protein Trace (Negative) 10/10/21 18:42 Urine Glucose (UA) Norm (Normal) 10/10/21 18:42 Urine Ketones Negative (Negative) 10/10/21 18:42 Urine Blood 3+ (Negative) H 10/10/21 18:42 Urine Nitrate Negative (Negative) 10/10/21 18:42 Urine Bilirubin Neg (Negative) 10/10/21 18:42 Urine Urobilinogen Norm mg/dL (Negative) 10/10/21 18:42 Ur Leukocyte Esterase Negative (Negative) 10/10/21 18:42 Urine RBC 5-10 /hpf (0-2) H 10/10/21 18:42 Urine WBC 5-10 /hpf (0-5) H 10/10/21 18:42 Ur Eosinophil Smear Not Reportable 10/10/21 18:42 Ur Squamous Epith Cells 0-4 /hpf (0-5) H 10/10/21 18:42 Amorphous Sediment Not Reportable 10/10/21 18:42 Urine Bacteria Trace /hpf (NONE) 10/10/21 18:42 Hyaline Casts 25-40 /lpf H 10/10/21 18:42 Urine Mucus Trace /hpf 10/10/21 18:42 Urine Eosinophils No eosinophils seen 10/10/21 18:42 Ur Random Sodium 10 mmol/L 10/10/21 18:42 Ur Random Potassium 46 mmol/L 10/10/21 18:42 Ur Random Chloride < 10 mmol/L 10/10/21 18:42 Urine Creatinine 176 mg/dL (39-259) 10/10/21 18:42 Fluid Color Red 10/12/21 15:00 Fluid Appearance Cloudy 10/12/21 15:00 Fluid Specific Grav 1.010 10/12/21 15:00 Fluid pH 7.0 10/12/21 15:00 Fluid WBC 7446 /uL 10/12/21 15:00 Fluid RBC 16.000 10^3/uL 10/12/21 15:00 Fld Polynuclear WBCs # 0.195 10/12/21 15:00 Fld Polynuclear WBCs % 2.700 % 10/12/21 15:00 Fl Mononucl WBCs #(Auto) 7.251 10/12/21 15:00 Fl Mononuclear % Auto 97.300 % 10/12/21 15:00 Thyroid Peroxidase Ab <1 IU/mL (<9) 10/10/21 19:47 Procedures Performed EGD/colonoscopy Thoracentesis Lymph node biopsy Vitals Last Vital Signs Temp 97.4 F L 10/12/21 15:55 Pulse 90 10/12/21 15:55 Resp 18 10/12/21 15:55 BP 124/70 10/12/21 15:55 Pulse Ox 92 10/12/21 15:55 O2 Del Method 10/12/21 15:55 O2 Flow Rate 2 10/12/21 15:55 Discharge Plan Discharge Patient Disposition: Home Health Service Condition: Stable Prescriptions: New donepezil 5 mg Tablet 10 mg PO BEDTIME Qty: 60 0RF folic acid 1 mg Tablet 1 mg PO BID Qty: 60 0RF ferrous gluconate 324 mg (37.5 mg iron) Tablet 324 mg PO BIDWM Qty: 60 0RF Lasix 40 mg tablet 40 mg PO BID Qty: 60 0RF metolazone 5 mg tablet 5 mg PO DAILY PRN (Reason: shortness of breath) Qty: 14 0RF levothyroxine 150 mcg capsule 150 mcg PO DAILY Qty: 30 0RF Continued citalopram 40 mg tablet 40 mg PO DAILY alprazolam 1 mg tablet 1 mg PO BEDTIME PRN (Reason: Anxiety) prazosin 1 mg capsule 1 - 3 mg PO BEDTIME tamsulosin 0.4 mg capsule 0.8 mg PO DAILY gabapentin 100 mg capsule 100 mg PO BID albuterol sulfate 90 mcg/actuation HFA aerosol inhaler 2 puff INHALATION Q6H PRN (Reason: Shortness Of Breath) fluticasone propionate 50 mcg/actuation spray,suspension 2 spray INTRANASAL BID PRN (Reason: Nasal Congestion) Advair HFA 115-21 mcg/actuation HFA aerosol inhaler 2 puff INHALATION Q12H Rexulti 0.5 mg tablet 0.5 mg PO DAILY Discontinued carvedilol 12.5 mg tablet 12.5 mg PO BID ibuprofen 800 mg tablet 800 mg PO BID PRN (Reason: Pain) amlodipine 5 mg tablet 5 mg PO DAILY Discharge Orders: Discharge Order (Routine); Ordered 10/12/21 Ordered By: Vijay Phillip Referrals: Josemanuel Negrete DO [Primary Care Provider] - 7-10 days (PLEASE CALL TUESDAY FOR APPOINTMENT WITH PCP) Discharge Diet: Regular Discharge Activity: Resume usual activity and Increase activity as tolerated Patient Instructions: Iron Supplements (By mouth), Metolazone (By mouth), Furosemide (By mouth), Folic Acid (By mouth), Donepezil (By mouth), Heart Failure (ED), Pleural Effusion (DC), CHF Stoplight, GI Discharge Instructions, Opioid Safety Activity Restrictions/Additional Instructions: Please follow-up with your primary care provider within next 1 week to 10 days for discussing the result of fluid studies and lymph node biopsy which were done during the hospitalization. Do not take amlodipine and carvedilol anymore. Please avoid taking ibuprofen going further. Lasix is a water pill please take 1 morning and 1 in the evening. Metolazone is also a water pill please take once daily as needed for shortness of breath. Discharge Attestations Time Spent in Discharge Care*: greater than 30 min Specific Discharge Activities: educating patient, educating and/or supporting family/caregiver, discussing with pcp/other providers, discussing with case management specialist/social workers/dc planners, documenting/other paperwork and evaluating patient/reviewing data Status at Discharge: Cognitive status at discharge: mildly impaired cognition, Behavioral status at discharge: cooperative, Functional status at discharge: independent ambulation, Overall status at discharge: patient is progressing back to baseline Quality Metrics Clinical Quality Measures [ No reported AMI, CVA or VTE this stay] Coding Level of Care Code Acute Chg FW DC note Diagnoses Lymphadenopathy, abdominal R59.0
[2021-10-12 17:00] LABS: Albumin Body Fluid 2.1 g/dL; Amylase Body Fluid 13 U/L; Fluid Alkaline Phos. 24 IU/L; LDH Body Fluid 1161 U/L
[2021-10-12 17:01] LABS: Cholesterol Body Fluid 75 mg/dL (0-200); Total Protein Pleural Fluid 3.6 g/dL; Triglycerides Body Fluid 41 mg/dL (0-150); Uric Acid Body Fluid 20 mg/dL
[2021-10-12] MEDS: gabapentin 100 mg Capsule PO (17:38)
--- NOTE | 2021-10-12 18:34 | PC.NURSE ---
dc'd pts dianna and al. discharge instructions given to pt and family members taking him home. verbalized understanding, no further questions at this time. pt left via [facility] to private vehicle. He refused to get dressed in his clothes, family said this was ok. all belongings sent with patient, phone, glasses, clothes and shoes.
[2021-10-13 13:27] LABS: H. Pylori / CLO Test Negative
[2021-10-15 09:38] LABS: Vit D 1,25 (Oh)2, Total 89 pg/mL (18-72); Vit D2 1,25 (Oh)2 <8 pg/mL; Vit D3 1,25 (Oh)2 89 pg/mL
[2021-10-16 15:47] LABS: PTH Related Peptide (Protein) 10 pg/mL (11-20)
== END 2021-10-12 18:10 | disposition home health service (06) | DRG 292 ==
LOC: ER 17:19 → MEDSURG 18:46
PROVIDERS: Family Medicine; Admitting Provider Student in an Organized Health Care Education/Training Program; Emergency Provider Family Medicine; PCP Family Medicine; Visit Provider Student in an Organized Health Care Education/Training Program
PROC: 0DJ08ZZ Inspection of Upper Intestinal Tract, Via Natural or Artificial Opening Endoscopic (ICD-10-PCS; CPT 43235; principal; 2021-10-12 08:15)
PROC: 0DJD8ZZ Inspection of Lower Intestinal Tract, Via Natural or Artificial Opening Endoscopic (ICD-10-PCS; CPT 45378; 2021-10-12 08:15)
DX: I13.0 Hypertensive heart and chronic kidney disease with heart failure and stage 1 through stage 4 chronic kidney disease, or unspecified chronic kidney disease (principal); E87.2 Acidosis; F05 Delirium due to known physiological condition; R18.8 Other ascites; R04.2 Hemoptysis; J91.8 Pleural effusion in other conditions classified elsewhere; I50.9 Heart failure, unspecified; N18.9 Chronic kidney disease, unspecified; R59.0 Localized enlarged lymph nodes; E83.52 Hypercalcemia; K26.9 Duodenal ulcer, unspecified as acute or chronic, without hemorrhage or perforation; K29.80 Duodenitis without bleeding; K29.50 Unspecified chronic gastritis without bleeding; K31.7 Polyp of stomach and duodenum; K64.8 Other hemorrhoids; R63.4 Abnormal weight loss; E03.9 Hypothyroidism, unspecified; N40.0 Benign prostatic hyperplasia without lower urinary tract symptoms; D69.6 Thrombocytopenia, unspecified; J44.9 Chronic obstructive pulmonary disease, unspecified; R20.2 Paresthesia of skin; Z68.26 Body mass index [BMI] 26.0-26.9, adult; Z87.81 Personal history of (healed) traumatic fracture; Z87.891 Personal history of nicotine dependence
CPT/HCPCS: 12345; 32555; 36415; 38505; 43239; 45378; 51702; 70360; 71045; 71046; 71250; 72131; 74176; 76536; 76705; 76942; 80048; 80053; 80061; 80503; 81001; 82042; 82150; 82306; 82310; 82330; 82378; 82436; 82465; 82533; 82542; 82570; 82607; 82652; 82746; 82945; 83036; 83540; 83550; 83615; 83721; 83735; 83880; 83970; 83986; 84075; 84133; 84145; 84157; 84300; 84315; 84439; 84443; 84478; 84481; 84560; 85025; 85378; 85610; 85730; 85999; 86376; 86403; 87015; 87070; 87075; 87077; 87102; 87116; 87205; 87206; 87449; 87801; 88108; 88305; 89050; 93005; 93306; 94640; 94664; 94760; 96372; 99285; C8929; G0103; J1644; J1940; J2704; J3420; J3480; J3490; J7030; J7626; Q9956

== ENCOUNTER 2021-10-23 13:31 | Inpatient (IN) | payer MEDICARE, SELFPAY ==
[2021-10-23 13:49] VITALS: BP 90/61; PULSE 90; RESP 20; TEMP 36.3; O2SAT 91; BMI 23.8
--- NOTE | 2021-10-23 14:19 | W.ED.SOB ---
HPI - SOB/Dyspnea General: Chief Complaint: Shortness of Breath/Dyspnea Stated Complaint: swelling feet Time Seen by Provider: 10/23/21 14:18 History of Present Illness: HPI Narrative: Mr. Tirado is a 66-year-old gentleman with history of CKD, CHF, thrombocytopenia, hypertension, thyroid disorder presenting to the emergency department due to concern of volume overload. He was previously hospitalized for similar and had end improve that was worse again for the past 2 weeks. Onset of symptoms was progressive. Intensity now severe. He has had generalized weakness associated with shortness of breath including falls. Marked dyspnea on exertion. Lower extremity edema. He reports compliance with his medication regimen. Denies infectious symptoms. History is mildly limited by patient's overall illness. No other specific changes in health, exacerbating, or alleviating factors identified. Onset (ago): week(s) Timing: progressively worsening Severity: severe Exacerbating factors: lying flat and exertion Associated symptoms: Reports other Treatment prior to arrival: diuretics Review of Systems General: Reports: 10 or more systems reviewed and unremarkable except in HPI and below PFSH ED PFSH: Medical History BPH (benign prostatic hyperplasia) Depression Hypertension Hypothyroid Pneumothorax Renal failure Rib fracture Physical Exam Const: COMMON NORMALS: alert GENERAL APPEARANCE: cooperative, well developed and ill appearing HENMT: COMMON NORMALS: normocephalic and atraumatic HEAD & SCALP: normocephalic and atraumatic Eye: COMMON NORMALS: conjunctivae normal CONJUNCTIVA: Yes conjunctivae normal SCLERA: sclerae normal Neck/C-Spine: COMMON NORMALS: supple GENERAL: Yes trachea midline Resp: COMMON NORMALS: normal respiratory effort EFFORT & INSPECTION: Yes able to speak in complete sentences Cardio: COMMON NORMALS: regular rate and regular rhythm RATE: regular rate RHYTHM: regular rhythm GI: COMMON NORMALS: Soft to palpation PALPATION: Yes Soft to palpation and No Tenderness to palpation present (GI) Extremity: GENERAL: Yes normal exam except as noted and Yes edema (3+ pitting without evidence of cellulitis bilateral) Neuro: COMMON NORMALS: moves all extremities SENSORIUM/ORIENTATION: Yes alert and No Orientation impaired Psych: COMMON NORMALS: mental status grossly normal and Normal thought process present THOUGHT PROCESS: Normal thought process present Course ED course: - Patient was seen and evaluated by me at bedside - Patient placed on cardiac monitors, IV access obtained - Initial evaluation notable for exam as above. Clinical evidence of volume overload. - Labs and xrays personally interpreted by me. EKG notable for sinus rhythm with nonspecific ST segment abnormalities, interventricular conduction delay, no STEMI. -Small fluid boluses for hypotension - Labs notable for minimal leukocytosis, normal hemoglobin. Metabolic panel with evidence of intravascular depletion including MATTY and hypokalemia. Potassium replenishment ordered. BNP is elevated. TSH high with mildly decreased free T4 though patient's clinical presentation is not consistent with myxedema coma certainly this could be contributing to abnormalities. - Imaging notable for chest x-ray with recurrent pleural effusions. CT head negative for acute pathology. - Upon serial reexamination after treatment the patient was similar - Based on patient history, evaluation, and testing as interpreted the most likely cause of the patient's condition is acute on chronic heart failure that has failed outpatient management in addition to recurrence of the malignant effusion. Additionally patient has MATTY and electrolyte arrangements. - The results of ED evaluation were discussed with the patient including plan for admission due to requirement for level of care not available if discharged to prevent significant worsening/deterioration. - Admitting service was contacted and Dr Silveira with the hospital service agreed to admit the patient - Patient was admitted without further deterioration or significant events. Note: Click bubbles or prepopulated jefferson in note writing are used for assistance with data collection and billing and are inherently more limited than narrative and other text portions of this note. Please use narrative for additional clinical history and defer to narrative/free test for any case of contradictory information. If information appears in only free text or click bubble it should be considered present or absent as reported. Please contact note newspaper writer for clarifications of clinical information or contradictory information. MDM is a brief summary, contradictory or erroneous seeming information should be clarified and full note should be reviewed. Vital Signs: Vital signs: Vital Signs Temperature 98.0 F 10/30/21 16:00 Pulse Rate 93 10/30/21 16:00 Respiratory Rate 22 H 10/30/21 16:00 Blood Pressure 114/69 10/30/21 16:00 Pulse Oximetry 88 L 10/30/21 16:45 Oxygen Delivery Wa thod 10/30/21 16:00 Oxygen Flow Rate 3 10/30/21 16:45 Fraction of Inspir ed Oxygen 2 10/24/21 19:46 MDM - SOB/Dyspnea Medical Decision Making 66-year-old gentleman with complex past medical history presenting with worsening symptoms of heart failure and respiratory symptoms despite outpatient treatment. Found to have recurrence of pleural effusion as well as electrolyte/metabolic derangements. Admitted for further management. Medical Records I reviewed the patient's medical records. Lab Data I reviewed the patient's lab results. : 10/29/21 07:22 10/29/21 07:22 Labs/Radiology: Radiology Impressions Cervical Spine CT 10/23/21 14:44 IMPRESSION: 1. No acute cervical spine fracture. 2. Moderate bilateral foraminal stenosis at C5-6 and C6-7. Head CT 10/23/21 14:44 IMPRESSION: 1. No acute intracranial hemorrhage or edema. 2. Mild atrophy and small vessel ischemic disease. 3. No skull fracture. Chest X-Ray 10/26/21 16:00 IMPRESSION: Negative for pneumothorax complication after thoracentesis. Abdomen Biopsy CT 10/27/21 08:00 IMPRESSION: Uncomplicated RIGHT omental CT-guided biopsy. Pathology is pending. Laboratory Results WBC 10.5 10^3/uL (4.0-10.0) H 10/23/21 14:29 RBC 3.87 10^6/uL (4.1-5.3) L 10/23/21 14:29 Hgb 12.6 g/dL (11.7-16.6) 10/23/21 14:29 Hct 37.2 % (42.0-52.0) L 10/23/21 14:29 MCV 96.1 fl (80-94) H 10/23/21 14:29 MCH 32.6 pg (28.0-34.0) 10/23/21 14:29 MCHC 33.9 g/dL (30.0-36.0) 10/23/21 14:29 RDW 17.2 % (12.1-15.1) H 10/23/21 14:29 Plt Count 71 10^3/cmm (130-400) L 10/23/21 14:29 MPV 11.9 fL (7.4-10.4) H 10/23/21 14:29 Neut % (Auto) 74.9 % 10/23/21 14:29 Lymph % (Auto) 13.3 % 10/23/21 14:29 [place] % (Auto) 10.8 % 10/23/21 14:29 Eos % (Auto) 0.4 % 10/23/21 14:29 Baso % (Auto) 0.1 % 10/23/21 14:29 Neut # (Auto) 7.88 10^3/uL (1.8-7.7) H 10/23/21 14:29 Lymph # (Auto) 1.4 10^3/uL (0.8-4.8) 10/23/21 14:29 [place] # (Auto) 1.1 10^3/uL (0.2-0.9) H 10/23/21 14:29 Eos # (Auto) 0.0 10^3/uL (0.0-0.8) 10/23/21 14: Baso # (Auto) 0.0 10^3/uL (0.0-0.1) 10/23/21 14: Nucleated RBC % (auto) 0 % 10/23/21 14: Nucleated RBCs # 0.0 /100WBC 10/23/21 14:29 Specimen Type Arterial 10/23/21 14:31 Sample Site Radial, left 10/23/21 14:31 ABG pH 7.57 (7.35-7.45) H* 10/23/21 14:31 ABG pCO2 39.2 mmHg (35-45) 10/23/21 14:31 ABG pO2 56.8 mmHg (80.0-100.0) L 10/23/21 14:31 ABG HCO3 35.5 mmol/L (22-26) H 10/23/21 14:31 ABG Base Excess 12.3 mmol/L (-2.0-2.0) H 10/23/21 14:31 Louie Test Pos 10/23/21 14:31 Hematocrit 39.2 % (42-52) L 10/23/21 14:31 O2 Delivery Device Room air 10/23/21 14:31 FiO2 21.0 % 10/23/21 14:31 Gambling Broker ID Cak 10/23/21 14:31 Sodium 127 mmol/L (136-145) L 10/23/21 14:29 Potassium 2.7 mmol/L (3.5-5.1) L* 10/23/21 14:29 Chloride 81 mmol/L (98-107) L 10/23/21 14:29 Carbon Dioxide 30 mmol/L (22-29) H 10/23/21 14:29 Anion Gap 18.7 (5-19) 10/23/21 14:29 BUN 63 mg/dL (8-23) H 10/23/21 14:29 Creatinine 2.7 mg/dL (0.7-1.2) H 10/23/21 14:29 GFR Calculation 23.7 mL/min (90-130) L 10/23/21 14:29 Glucose 87 mg/dL (65-115) 10/23/21 14:29 Calculated Osmolality 281 mOsm/kg (285-295) L 10/23/21 14:29 Calcium 10.5 mg/dL (8.5-10.5) 10/23/21 14:29 Phosphorus 4.3 mg/dL (2.5-4.5) 10/23/21 16:57 Magnesium 2.2 mg/dL (1.7-2.3) 10/23/21 16:57 Total Bilirubin 1.4 mg/dL (0.15-1.2) H 10/23/21 14:29 AST 27 U/L (0-40) 10/23/21 14:29 ALT 19 U/L (0-41) 10/23/21 14:29 Alkaline Phosphatase 97 U/L (40-130) 10/23/21 14:29 Ammonia 26 umol/L (16-60) 10/23/21 14:29 Troponin T Baseline 38 ng/L (0-15) H 10/23/21 14:29 Troponin T 120 Minute 37.14 ng/L (0-15) H 10/23/21 16:57 Delta Troponin T -0.86 ABS# (0-10) L 10/23/21 16:57 Troponin T Hi Sens 6Hr 36.45 ng/L (0-15) H 10/23/21 20:15 Troponin T Hi Sens 6Hr Delta -1.55 ng/L (0-12) L 10/23/21 20:15 NT-Pro-B Natriuret Pep 1088 pg/mL (0-125) H 10/23/21 14:29 Total Protein 5.9 g/dL (6.6-8.7) L 10/23/21 14:29 Albumin 2.7 g/dL (3.5-5.2) L 10/23/21 14:29 Globulin 3.2 g/dL (1.3-4.6) 10/23/21 14:29 TSH 22.01 uIU/mL (0.27-4.20) H 10/23/21 14:29 Free T4 0.72 ng/dL (0.82-1.77) L 10/23/21 14:29 Critical Care Time Critical Care Time: Critical Care Time: Yes Total Critical Care Time: 35 Attestation: Due to a high probability of clinically significant, possibly life threatening deterioration, the patient required my highest level of attention and preparedness to intervene emergently and I personally spent this critical care time directly and personally managing the patient. This critical care time included obtaining a history; examining the patient; pulse oximetry; ordering and review of laboratory and imaging studies; arranging urgent treatment with development of a management plan; evaluation of patient's response to treatment; frequent reassessment; and, discussions with other providers as applicable. It was exclusive of separately billable procedures. Primary system involved is cardiopulmonary and metabolic Discharge Plan Discharge Patient Disposition: Placed in Observation Admit Provider: Sunil Silveira Clinical Impression: Shortness of breath, Pleural effusion, Acute kidney injury superimposed on chronic kidney disease, Hypokalemia Coding Level of Care Code ED Private Duty Rn for Jaretg Fwd Exam Comprehensive
--- NOTE | 2021-10-23 14:20 | XR_ITS ---
WS: [id number] Portable AP upright chest, 10/23/2021 Clinical Data: volume overload Comparison: Portable chest, 10/12/2021. Findings: The moderate right pleural effusion remains the same. There is a small left effusion. There is patchy atelectasis in the right lower lobe which may represent atelectasis and perhaps pneumonia. Monitor leads are on the chest wall. The heart size appears the same. There are old right upper rib fractures.. XR/XR chest 1V portable [id number] Impression: 1. No change in right pleural effusion and small left effusion. 2. Patchy atelectasis and/or pneumonia in the right lung base unchanged.
[2021-10-23 14:30] VITALS: BP 162/90; PULSE 90; RESP 17; TEMP 36.3; O2SAT 90
--- NOTE | 2021-10-23 14:34 | ECG_ITS ---
[facility] Test Date: 2021-10-23 Pat Name: Chandan Tirado Department: Room: Gender: Male Director Of Design: : 1955 Requested By: Akil Plata Order Number: [id number] Josesito MD: Asher Funez M.D. Measurements Intervals [place] Rate: 84 P: -18 [place]: 187 QRS: -30 QRSD: 117 T: 39 QT: 407 QTc: 483 Interpretive Statements SINUS RHYTHM BORDERLINE LEFT AXIS DEVIATION [QRS AXIS < -20] MODERATE INTRAVENTRICULAR CONDUCTION DELAY [110+ ms QRS DURATION] NONSPECIFIC T-WAVE ABNORMALITY Compared to ECG 10/10/2021 16:09:27 No significant changes Electronically Signed On 10-23-2021 14:36:24 CDT by Asher Funez M.D. [id number]
[2021-10-23 14:39] LABS: Basophils % 0.1 %; Eosinophils % 0.4 %; Hematocrit 37.2 % (42.0-52.0); Hemoglobin 12.6 g/dL (11.7-16.6); Lymphocytes # 1.4 10^3/uL (0.8-4.8); Lymphocytes % 13.3 %; Mean Corpuscular HGB Conc 33.9 g/dL (30.0-36.0); Mean Corpuscular Hemoglobin 32.6 pg (28.0-34.0); Mean Corpuscular Volume 96.1 fl (80-94); Mean Platelet Volume 11.9 fL (7.4-10.4); Monocytes # 1.1 10^3/uL (0.2-0.9); Monocytes % 10.8 %; Neutrophils # 7.88 10^3/uL (1.8-7.7); Neutrophils % 74.9 %; Nucleated Red Blood Cells % 0 %; Platelet Count 71 10^3/cmm (130-400); Red Blood Count 3.87 10^6/uL (4.1-5.3); Red Cell Distribution Width 17.2 % (12.1-15.1); White Blood Count 10.5 10^3/uL (4.0-10.0)
[2021-10-23 14:42] LABS: ABG PCO2 39.2 mmHg (35-45); Arterial Blood Gas Hematocrit 39.2 % (42-52); Base Excess ABG 12.3 mmol/L (-2.0-2.0); Blood Gas Allen Test Pos; Blood Gas Operator Identificat CAK; Blood Gas Sample Site Radial, left; Blood Gas Sample Type Arterial; HCO3 ABG 35.5 mmol/L (22-26); Oxygen Device ROOM AIR; PO2 ABG 56.8 mmHg (80.0-100.0)
--- NOTE | 2021-10-23 14:44 | CT_ITS ---
WS: [id number] CT HEAD NONCONTRAST HISTORY: Falls, head strike TECHNIQUE: Contiguous axial imaging performed through the brain in 2.5 mm imaging. Bone and soft tiss ue windows. Sagittal and coronal reformats reviewed. All CT scans at [facility] use at least one of these dose optimization techniques: automated exposure control; mA and/or kV adjustment per pa tient size (includes targeted exams where dose is matched to clinical indication); or iterative recon struction. DLP: 1043.88 mGy.cm COMPARISON: None available. No acute intracranial hemorrhage, midline shift or mass effect. Mild bilateral atrophy and small vessel ischemic disease. No extra-axial hematoma. Ventricles: Normal size with no hydrocephalus. No inferior displacement of the cerebellar tonsils. Paranasal sinuses: Mucoperiosteal thickening in the maxillary and ethmoid air cells and sphenoid sinu ses. Mastoid air cells: Well pneumatized. Calvarium and scalp: Skull is intact with no soft tissue edema or swelling. CT/CT head wo con* [id number] IMPRESSION: 1. No acute intracranial hemorrhage or edema. 2. Mild atrophy and small vessel ischemic disease. 3. No skull fracture.
--- NOTE | 2021-10-23 14:44 | CT_ITS ---
WS: [id number] CT CERVICAL SPINE HISTORY: Falls, head strike, mental status change TECHNIQUE: Contiguous 2.5 mm axial imaging performed through the entire cervical spine. Sagittal and coronal reformats also performed. All CT scans at [facility] use at least one of these dose o ptimization techniques: automated exposure control; mA and/or kV adjustment per patient size (include s targeted exams where dose is matched to clinical indication); or iterative reconstruction. DLP: 165.87 mGy.cm COMPARISON: None available. C4 anterolisthesis by 3 mm. Moderate disc space narrowing at C4-5, C5-6 and C6-7. No fractures. Facet joints are normally aligned. Craniocervical junction is normal. Lateral masses of C1 and C2 are alig britton. The odontoid is intact. C2-C3: Normal. C3-C4: Mild osteophytic ridging. No stenosis. C4-C5: Osteophytic ridging with facet and ligamentum flavum hypertrophy. C5-C6: Osteophytic ridging and facet joint arthritis. Moderate bilateral foraminal stenosis. C6-C7: Moderate osteophytic ridging with moderate bilateral foraminal stenosis. C7-T1: Normal. RIGHT pleural effusion layering at the apex. Calcified plaque in the cervical carotid arteries. CT/CT cervical spin wo con* [id number] IMPRESSION: 1. No acute cervical spine fracture. 2. Moderate bilateral foraminal stenosis at C5-6 and C6-7.
[2021-10-23 14:57] LABS: Ammonia 26 umol/L (16-60)
[2021-10-23 15:01] LABS: Troponin(5th) Baseline 38 ng/L (0-15)
[2021-10-23 15:11] LABS: Alanine Aminotransferase 19 U/L (0-41); Albumin Level 2.7 g/dL (3.5-5.2); Alkaline Phosphatase 97 U/L (40-130); Anion Gap 18.7 (5-19); Aspartate Amino Transferase 27 U/L (0-40); Blood Urea Nitrogen 63 mg/dL (8-23); Calcium 10.5 mg/dL (8.5-10.5); Carbon Dioxide 30 mmol/L (22-29); Chloride 81 mmol/L (98-107); Globulin 3.2 g/dL (1.3-4.6); Glomerular Filtration Rate 23.7 mL/min (90-130); Glucose 87 mg/dL (65-115); NT Pro B Type Natriuretic Pept 1088 pg/mL (0-125); Osmolality Calculated 281 mOsm/kg (285-295); Sodium 127 mmol/L (136-145); Thyroid Stimulating Hormone 22.01 uIU/mL (0.27-4.20); Total Bilirubin 1.4 mg/dL (0.15-1.2); Total Protein 5.9 g/dL (6.6-8.7)
[2021-10-23 15:18] LABS: Potassium 2.7 mmol/L (3.5-5.1)
[2021-10-23 15:53] LABS: Free T4 Free Thyroxine 0.72 ng/dL (0.82-1.77)
[2021-10-23] MEDS: potassium chloride ER 20 mEq Tablet 40 MEQ PO (16:09)
[2021-10-23 16:27] LABS: ABG PH Result 7.57 (7.35-7.45)
--- NOTE | 2021-10-23 16:45 | ECG_ITS ---
[facility] Test Date: 2021-10-23 Pat Name: Chandan Tirado Department: Room: Gender: Male Deep Sea Diver: : 1955 Requested By: Akil Plata Order Number: [id number] Josesito MD: Asher Funez M.D. Measurements Intervals [place] Rate: 79 P: -28 [place]: 188 QRS: -19 QRSD: 124 T: 33 QT: 397 QTc: 457 Interpretive Statements SINUS RHYTHM MODERATE INTRAVENTRICULAR CONDUCTION DELAY [105+ ms QRS DURATION, 80+ ms Q/S IN V1/V2, NO Q AND 60+ ms R IN I/aVL/V5/V6] Compared to ECG 10/23/2021 14:34:20 T-wave abnormality no longer present Electronically Signed On 10-25-2021 13:35:05 CDT by Asher Funez M.D. [id number]
[2021-10-23 18:06] LABS: Troponin 5 2HR 37.14 ng/L (0-15)
[2021-10-23 18:10] LABS: Troponin 5 2HR Delta -0.86 ABS# (0-10)
--- NOTE | 2021-10-23 19:12 | PC.NURSE ---
report given to grace lowe assumed care.
--- NOTE | 2021-10-23 19:19 | PM.HP ---
Providers/Chief Complaint Admitting Physician: Sunil Silveira MD Primary Care Provider: Josemanuel Negrete DO Chief Complaint: swelling feet History of Present Illness Chandan Tirado is a 66 year old male with weight loss edema, hypothyroidism omental caking right pleural effusion recently admitted from 10/10/2021 to 10/12/2021. Patient underwent thoracentesis and right inguinal node biopsy trying to identify malignancy but test were negative. Patient did not follow-up with Josemanuel Mchugh as directed in part because the studies were negative Patient now returns with son's baron Gandara and his grandson He is referred for heart failure with intravascular volume depletion and pleural effusion and anasarca but reading the chart it appears that he has suspected malignancy, 30 pound weight loss, hypothyroidism with potential myxedema and is in need of diagnosis and identification of malignancy Review of Systems Narrative: Positive for weight loss, fatigue, weakness, leg swelling, orthopnea, dyspnea on exertion Medications/Allergies Home Medications Medication Instructions Recorded Confirmed Last Taken Type albuterol sulfate 90 mcg/actuation 2 puff inhalation Q6H PRN 10/10/21 10/23/21 Unknown History aerosol inhaler Shortness Of Breath alprazolam 1 mg tablet 1 mg PO BEDTIME PRN Anxiety 10/10/21 10/23/21 Unknown History brexpiprazole 0.5 mg tablet 0.5 mg PO DAILY 10/10/21 10/23/21 10/09/21 History (Rexulti) citalopram 40 mg tablet 40 mg PO DAILY 10/10/21 10/23/21 10/09/21 History fluticasone propionate 115 2 puff inhalation Q12H 10/10/21 10/23/21 10/10/21 History mcg-salmeterol 21 mcg/actuation HFA inhaler (Advair HFA) fluticasone propionate 50 2 spray intranasal BID PRN Nasal 10/10/21 10/23/21 Unknown History mcg/actuation nasal Congestion spray,suspension gabapentin 100 mg capsule 100 mg PO BID 10/10/21 10/23/21 10/09/21 History prazosin 1 mg capsule 1 - 3 mg PO BEDTIME 10/10/21 10/23/21 10/09/21 History tamsulosin 0.4 mg capsule 0.8 mg PO DAILY 10/10/21 10/23/21 10/09/21 History donepezil 5 mg tablet 10 mg PO BEDTIME #60 tabs 10/12/21 10/23/21 Unknown Rx ferrous gluconate 324 mg (37.5 mg 324 mg PO BIDWM #60 tabs 10/12/21 10/23/21 Unknown Rx iron) tablet folic acid 1 mg tablet 1 mg PO BID #60 tabs 10/12/21 10/23/21 Unknown Rx furosemide 40 mg tablet (Lasix) 40 mg PO BID #60 tabs 10/12/21 10/23/21 Unknown Rx metolazone 5 mg tablet 5 mg PO DAILY PRN shortness of 10/12/21 10/23/21 Unknown Rx breath #14 tabs Allergies Allergy/AdvReac Type Severity Reaction Status Date / Time mold Allergy Intermediate unknown Uncoded 10/10/21 13:12 PFSH Acute PFSH: Medical History BPH (benign prostatic hyperplasia) Depression Hypertension Hypothyroid Pneumothorax Renal failure Rib fracture Vitals/I&O/Wt Last Vital Signs Temp 97.4 F L 10/23/21 14:30 Pulse 90 10/23/21 14:30 Resp 17 10/23/21 14:30 BP 162/90 10/23/21 14:30 Pulse Ox 90 10/23/21 14:30 O2 Del Method 10/23/21 14:30 O2 Flow Rate 0 10/23/21 14:30 FiO2 0 10/23/21 14:30 Weight last 48 hrs Weight 79.832 kg Physical Exam Narrative: General well-developed chronically ill-appearing male with thigh and calf edema he has central muscle wasting CV regular rate and rhythm Lungs decreased breath sounds in right middle lung absent breath sounds in the right lower lung. Left side trace crackles in left base Abdomen positive bowel sounds soft liver is not obviously enlarged he does not have rebound tenderness Calves 3+ edema at the ankles 3+ to 4 in the feet Data : 10/23/21 14:29 10/23/21 14:29 A&P Assessment and plan (1) Recurrent right pleural effusion: Patient is short of breath but only borderline hypoxemic. We will support with oxygen I will likely proceed with thoracentesis tomorrow with additional cytology The patient should start incentive spirometry Status: Acute (2) Omental mass: If the fluid is not overtly bloody and likely to give a diagnosis on the pleural fluid I think we should proceed with laparoscopy and I will consult a surgeon Status: Acute (3) Hypokalemia: Replace Status: Acute (4) Acute kidney injury superimposed on chronic kidney disease: Hold diuretic Status: Acute (5) Hypothyroid: Initiate IV levothyroxine 100 mcg daily first dose now Status: Acute Attestations Medical Necessity Statement*: Patient is rapidly failing at home suspicious for undiagnosed malignancy. He has not been able to do outpatient work-up and the inpatient work-up which we suspected would be diagnostic has not been successful Anticipate 3 nights in the hospital Time Spent in Patient Care: 50 minutes spent in evaluation coronation care for this patient today Coding Level of Care Code Acute Community Development Coordinator for Chg Fwd History Comprehensive Exam Detailed Medical Decision Making High Complexity Diagnoses Recurrent right pleural effusion J90 Omental mass K66.8 Hypokalemia E87.6 Acute kidney injury superimposed on chronic kidney disease N17.9; N18.9 Hypothyroid E03.9
[2021-10-23] MEDS: levothyroxine 100 mcg SDV IVP (19:34)
[2021-10-23] MEDS: lactated ringers 500 ML 999 ML IV (19:34)
[2021-10-23 19:35] VITALS: BP 105/64; PULSE 87; RESP 18; O2SAT 95
[2021-10-23 19:42] LABS: Magnesium 2.2 mg/dL (1.7-2.3); Phosphorus 4.3 mg/dL (2.5-4.5)
--- NOTE | 2021-10-23 20:20 | ECG_ITS ---
[facility] Test Date: 2021-10-23 Pat Name: Chandan Tirado Department: Room: 259 Gender: Male Studio Artist: : 1955 Requested By: Akil Plata Order Number: [id number] Josesito MD: Asher Funez M.D. Measurements Intervals [place] Rate: 83 P: -36 [place]: 193 QRS: -24 QRSD: 122 T: 14 QT: 405 QTc: 478 Interpretive Statements SINUS RHYTHM MODERATE INTRAVENTRICULAR CONDUCTION DELAY [105+ ms QRS DURATION, 80+ ms Q/S IN V1/V2, NO Q AND 60+ ms R IN I/aVL/V5/V6] Compared to ECG 10/23/2021 16:45:13 No significant changes Electronically Signed On 10-25-2021 13:31:54 CDT by Asher Funez M.D. [id number]
[2021-10-23 20:35] VITALS: BP 106/61; PULSE 89; RESP 18; O2SAT 96
[2021-10-23 20:48] LABS: Troponin 5 6HR 36.45 ng/L (0-15)
[2021-10-23 20:51] LABS: Troponin 5 6HR Delta -1.55 ng/L (0-12)
[2021-10-23 21:43] VITALS: BP 102/61; PULSE 80; RESP 16; TEMP 36.4; O2SAT 90
[2021-10-23] MEDS: enoxaparin 40 mg/0.4 mL Syringe SUBCUT (22:53)
[2021-10-23 23:02] VITALS: O2SAT 93
[2021-10-24] VITALS (8 sets, daily range): BP systolic 100–122; BP diastolic 51–72; PULSE 74–97; RESP 14–18; TEMP 36.4–36.8; O2SAT 92–96
[2021-10-24] MEDS: famotidine 20 mg/2 mL INJ IVP ×3 (00:27→23:46)
[2021-10-24 05:18] LABS: Basophils % 0.1 %; Eosinophils # 0.1 10^3/uL (0.0-0.8); Eosinophils % 1.5 %; Hematocrit 33.1 % (42.0-52.0); Hemoglobin 10.8 g/dL (11.7-16.6); Lymphocytes # 0.8 10^3/uL (0.8-4.8); Lymphocytes % 9.9 %; Mean Corpuscular HGB Conc 32.6 g/dL (30.0-36.0); Mean Corpuscular Hemoglobin 32.1 pg (28.0-34.0); Mean Corpuscular Volume 98.5 fl (80-94); Mean Platelet Volume 12.6 fL (7.4-10.4); Monocytes # 0.9 10^3/uL (0.2-0.9); Monocytes % 11.9 %; Nucleated Red Blood Cells % 0 %; Platelet Count 56 10^3/cmm (130-400); Red Blood Count 3.36 10^6/uL (4.1-5.3); Red Cell Distribution Width 17.1 % (12.1-15.1); White Blood Count 7.9 10^3/uL (4.0-10.0)
[2021-10-24 05:29] LABS: INR 1.01 (0.8-1.2)
[2021-10-24 05:30] LABS: Partial Thromboplastin Time 29.5 SECONDS (23.9-36.7)
[2021-10-24 05:38] LABS: Anion Gap 12.9 (5-19); Blood Urea Nitrogen 65 mg/dL (8-23); Calcium 9.8 mg/dL (8.5-10.5); Carbon Dioxide 36 mmol/L (22-29); Chloride 86 mmol/L (98-107); Glomerular Filtration Rate 25.9 mL/min (90-130); Glucose 77 mg/dL (65-115); Osmolality Calculated 291 mOsm/kg (285-295); Phosphorus 4.2 mg/dL (2.5-4.5); Sodium 132 mmol/L (136-145)
[2021-10-24 06:22] LABS: Potassium 2.9 mmol/L (3.5-5.1)
[2021-10-24] MEDS: gabapentin 100 mg Capsule PO ×2 (09:06→17:09)
[2021-10-24] MEDS: levothyroxine 100 mcg SDV IVP (09:17)
--- NOTE | 2021-10-24 11:18 | P.PN_ITS ---
Subjective Subjective: 66-year-old male overnight with confusion pulled out IVs tried to get up without assistance so has a sitter. Today his son Champ is present at bedside and provides most of the history. 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 In April he was home and helping his father around father's house and noted that several days when he would go over her father was sleeping quite a bit but still looked 220 pounds and vigorous. Father was able to carry 2 by fours and work. September 09 father helped direct the unloading of a safe from Champ's pickup but was noticeably weaker and did not physically do much In the last month he has had weight loss from what Champ thought was his usual 220 pounds down to recent 180. Patient had thoracentesis last visit without complication but also without diagnosis reached he has omental caking and had a lymph node in the right groin biopsied in radiology last hospitalization but was negative for malignancy. Patient shows rapid decline suspicious for malignancy. He also does have severe hypothyroidism. Vitals/I&O/Wt Last Vital Signs Temp 98.0 F 10/24/21 04:00 Pulse 97 10/24/21 08:00 Resp 18 10/24/21 08:00 BP 116/60 10/24/21 07:27 Pulse Ox 96 10/24/21 08:00 O2 Del Method 10/24/21 08:00 O2 Flow Rate 2 10/24/21 08:00 FiO2 0 10/23/21 14:30 10/23/21 10/24/21 10/24/21 22:59 06:59 14:59 Intake Total 620 / 620 360 / 360 Balance 620 / 620 360 / 360 Weight last 48 hrs Weight 81.919 kg Weight 79.832 kg Physical Exam Narrative: General well-developed chronically ill-appearing male tall. He is alert and oriented to person and place but does give lots of history and discussion that does not pertain to discussion at hand CV regular rate and rhythm Lungs diminished breath sounds in the right mid and lower lung field Abdomen positive bowel sounds soft nontender no rebound Calves 3+ pretibial edema Skin warm and dry Data : 10/24/21 04:45 10/24/21 04:45 A&P Assessment and plan (1) Recurrent right pleural effusion: Patient is short of breath but only borderline hypoxemic. We will support with oxygen I will likely proceed with thoracentesis today with additional cytology as time allows The patient should start incentive spirometry Physical therapy has seen the patient and he is able to walk with PT with Occupational Therapy was able to sit up on his own and put on his socks. Patient has rapid decline in I have high suspicion for malignancy. Status: Acute (2) Omental mass: If the fluid is not overtly bloody and likely to give a diagnosis on the pleural fluid I think we should proceed with laparoscopy and I will consult Dr. Mustafa Status: Acute (3) Hypokalemia: Replaced but still low Diuresis limited by apparent cancer, low albumin and low thyroid Status: Acute (4) Acute kidney injury superimposed on chronic kidney disease: Hold diuretic Status: Acute (5) Hypothyroid: Initiate IV levothyroxine 100 mcg daily first dose now Status: Acute Attestations Medical Necessity Statement*: Patient will be in the hospital for thoracentesis and surgical consultation. Time Spent in Patient Care: 35 minutes spent in evaluation and coordination of care for this patient today Coding Level of Care Code Acute Camera Prototyping Engineer for Jose Luis Fwpaulo Diagnoses Recurrent right pleural effusion J90 Omental mass K66.8 Hypokalemia E87.6 Acute kidney injury superimposed on chronic kidney disease N17.9; N18.9 Hypothyroid E03.9
[2021-10-24] MEDS: enoxaparin 40 mg/0.4 mL Syringe SUBCUT (21:37)
[2021-10-25] VITALS (7 sets, daily range): BP systolic 92–126; BP diastolic 61–71; PULSE 77–95; RESP 15–20; TEMP 36.4–37.1; O2SAT 94–97
[2021-10-25 05:57] LABS: Anion Gap 13.6 (5-19); Blood Urea Nitrogen 55 mg/dL (8-23); Calcium 10.2 mg/dL (8.5-10.5); Carbon Dioxide 35 mmol/L (22-29); Chloride 90 mmol/L (98-107); Glomerular Filtration Rate 35.5 mL/min (90-130); Glucose 85 mg/dL (65-115); Osmolality Calculated 296 mOsm/kg (285-295); Sodium 136 mmol/L (136-145)
[2021-10-25 06:16] LABS: Creatinine Clr Calc Pharmacy 42.2924
[2021-10-25 06:17] LABS: Potassium 2.6 mmol/L (3.5-5.1)
[2021-10-25] MEDS: levothyroxine 100 mcg SDV IVP (09:54)
[2021-10-25] MEDS: gabapentin 100 mg Capsule PO ×2 (09:55→17:59)
[2021-10-25 15:27] LABS: Glucose Point of Care 110 mg/dL (70-110)
--- NOTE | 2021-10-25 16:04 | PM.ACPR ---
Procedure/Consent Consent: Additional Consent Information: verbal with patient today and son Champ yesterday Procedure Narrative: Patient set up right and ultrasound used to locate fluid following auscultation and percussion. Prepped the area with chlorhexidine and identified the location just above a lower rib Skin wheal was raised with 25-gauge needle and subcutaneous tissues anesthetized just above right lower rib. Blood tinged fluid return and catheter was placed. Unfortunately there was no usable suction device or tubing to connect to the Vacutainer as this was not a thoracentesis tray but a percutaneous insertion tray. I did draw off 60 cc of blood-tinged fluid and sent off for lab cell count and cytology. Nurses try to locate thoracentesis tray or tubing but were unable to locate this in a reasonable timeframe. Catheter was removed and pressure was held. Occlusive dressing placed with 4 x 4 and foam tape. No immediate complications chest x-ray is pending Specimen 60 cc fluid
--- NOTE | 2021-10-25 16:08 | PM.PN ---
Subjective Subjective: 66-year-old male overnight with confusion pulled out IVs tried to get up without assistance so has a sitter. Today his son Champ is present at bedside and provides most of the history. 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 In April he was home and helping his father around father's house and noted that several days when he would go over her father was sleeping quite a bit but still looked 220 pounds and vigorous. Father was able to carry 2 by fours and work. September 09 father helped direct the unloading of a safe from Champ's pickup but was noticeably weaker and did not physically do much In the last month he has had weight loss from what Champ thought was his usual 220 pounds down to recent 180. Patient had thoracentesis last visit without complication but also without diagnosis reached he has omental caking and had a lymph node in the right groin biopsied in radiology last hospitalization but was negative for malignancy. Patient shows rapid decline suspicious for malignancy. He also does have severe hypothyroidism. Patient is doing physical therapy with good effort. He states he is ready to proceed with thoracentesis. Vitals/I&O/Wt Last Vital Signs Temp 98.7 F 10/25/21 15:02 Pulse 86 10/25/21 15:02 Resp 20 H 10/25/21 15:02 BP 126/71 10/25/21 15:02 Pulse Ox 95 10/25/21 15:02 O2 Del Method 10/25/21 11:30 O2 Flow Rate 2 10/25/21 08:00 FiO2 2 10/24/21 19:46 10/25/21 10/25/21 10/25/21 06:59 14:59 22:59 Intake Total 200 / 200 Output Total 125 / 950 500 / 500 Balance -125 / -230 -300 / -300 Weight last 48 hrs Weight 81.737 kg Weight 81.919 kg Physical Exam Narrative: General well-developed chronically ill-appearing male tall. He is alert and oriented to person and place but does give lots of history and discussion that does not pertain to discussion at hand CV regular rate and rhythm Lungs diminished breath sounds in the right mid and lower lung field Abdomen positive bowel sounds soft nontender no rebound Calves 2+ pretibial edema Skin warm and dry Data : 10/24/21 04:45 10/25/21 05:08 A&P Assessment and plan (1) Recurrent right pleural effusion: Patient is short of breath but only borderline hypoxemic. We will support with oxygen I will likely proceed with thoracentesis today with additional cytology as time allows The patient should start incentive spirometry Physical therapy has seen the patient and he is able to walk with PT with Occupational Therapy was able to sit up on his own and put on his socks. Patient has rapid decline in I have high suspicion for malignancy. Due to being ill prepared with what I thought was the right kidney but really was not a thoracentesis or paracentesis tray but a percutaneous insertion tray I was unable to collect enough fluid for full drainage of the right pleural space. Will order only cytology and cell count and order an ultrasound-guided thoracentesis in the radiology department. Nurses checked with emergency department and they state they did not have the right tray Status: Acute (2) Omental mass: If the fluid is not overtly bloody and likely to give a diagnosis on the pleural fluid I think we should proceed with laparoscopy and I will consult Dr. Mustafa encourage nutrition Status: Acute (3) Hypokalemia: Replaced but still low Diuresis limited by apparent cancer, low albumin and low thyroid Status: Acute (4) Acute kidney injury superimposed on chronic kidney disease: renal function improving. replace potassium. Status: Acute (5) Hypothyroid: Initiate IV levothyroxine 100 mcg daily first dose now Status: Acute Attestations Medical Necessity Statement*: Patient remains in the hospital for electrolyte correction, nutrition, physical therapy and further diagnostic studies. 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
[2021-10-25 16:25] LABS: Mononuclear %, Pleural Fluid 96 %; Polynuclear Cells, Pleural % 4 %
[2021-10-25 16:27] LABS: Appearance, Pleural Fluid BLOODY (CLEAR); Color, Pleural Fluid Red (Pale Yellow); PATH Referal YES
[2021-10-25] MEDS: lidocaine 1% INJ 20 mL MDV (mL) 15 ML INTRADERMA (17:59)
--- NOTE | 2021-10-25 18:11 | P.PCN_ITS ---
Outpatient Procedures Thoracentesis Consent signed and on chart: Yes Time Out Performed: Yes Procedure: therapeutic thoracentesis Location: Right Local anesthetic used: lidocaine 1% Bedside ultrasound used: yes, pleural effusion confirmed and location marked Fluid: bloody and sent to lab for analysis Size of needle used: 18 Post Procedure Exam: awake, alert, normal BP, normal HR, normal SpO2 and other Post-procedure chest x-ray ordered: Yes Estimated blood loss (mL): 5 Patient Tolerated Procedure: well and no complications Procedure Note: Patient with omental caking and severe weight loss he has had recurring right mic ng effusion. Last thoracentesis was not diagnostic of malignancy. I looked for peritoneal fluid but could not find a comfortable location to tap. The pleural fluid was identified at the lower right posterior chest and area marked. I anesthetized this with lidocaine following prep with chlorhexidine Skin wheal was raised. Subcutaneous tissue anesthetized with 8 cc lidocaine. 18-gauge needle was needed to pass through the tissue and subsequent introducer trocar and sheath were put in place. Trocar needle removed and appropriate tubing attached to Vacutainer bottle and we subsequently removed 2400 cc Postprocedure chest x-ray is pending Preoperative diagnosis recurrent right pleural effusion Postoperative diagnosis bloody malignant pleural effusion
[2021-10-25] MEDS: potassium chloride ER 20 mEq Tablet 40 MEQ PO ×2 (18:24→23:43)
[2021-10-25 19:42] LABS: Body Fluid Polynuclear #Cells 0.188; Body Fluid WBC 4719 /uL; Monocytes # Body Fluid 4.531
[2021-10-25 19:43] LABS: Apprearance, Body Fluid BLOODY; Color, Body Fluid RED
[2021-10-25 20:03] LABS: Hematocrit Body Fluid 1.2 %
[2021-10-25 20:07] LABS: Albumin Body Fluid 1.9 g/dL; Total Protein Pleural Fluid 3.4 g/dL; Triglycerides, Pleural Fluid 47 mg/dL
[2021-10-25 20:20] LABS: LDH Pleural Fluid 1455 U/L
--- NOTE | 2021-10-25 20:47 | PC.NURSE ---
patient dumped urinal on floor
[2021-10-25] MEDS: ziprasidone 20 mg/mL SDV 10 MG IM (21:00)
[2021-10-25 21:29] LABS: Cyto Order Verification Order Verified
[2021-10-25 22:44] LABS: Cyto Order Verification Order Verified
[2021-10-25] MEDS: famotidine 20 mg/2 mL INJ IVP (23:41)
[2021-10-26] VITALS (7 sets, daily range): BP systolic 103–119; BP diastolic 64–70; PULSE 90–98; RESP 16–18; TEMP 36.4–37.2; O2SAT 90–96
--- NOTE | 2021-10-26 03:35 | PC.NURSE ---
Patient Nichol welch, called for assistance at 0315. RN and HOTEL OR MOTEL MANAGER entered room immediately and found patient sitting in the floor facing the side of the bed with knees flexed. Ajay reports that patient was trying to use the urinal and became unsteady on his feet. She assisted patient to the floor. RN and HOTEL OR MOTEL MANAGER cleaned urine from the floor with disposable luis fernando to reduce further hazard. RN and HOTEL OR MOTEL MANAGER assisted patient to his feet and back into bed. No injuries occurred. Patient did not report any pain. relay tester helper notified. Patient vital signs obtained: T 98.9, P 90, R 16, BP 111/69, O2 95% on 3L NC.
[2021-10-26 05:12] LABS: Basophils % 0.3 %; Eosinophils # 0.1 10^3/uL (0.0-0.8); Hematocrit 36.4 % (42.0-52.0); Hemoglobin 11.8 g/dL (11.7-16.6); Lymphocytes # 1.3 10^3/uL (0.8-4.8); Lymphocytes % 16.6 %; Mean Corpuscular HGB Conc 32.4 g/dL (30.0-36.0); Mean Corpuscular Hemoglobin 32.1 pg (28.0-34.0); Mean Corpuscular Volume 98.9 fl (80-94); Mean Platelet Volume 12.4 fL (7.4-10.4); Monocytes # 1.3 10^3/uL (0.2-0.9); Monocytes % 16.2 %; Neutrophils # 5.07 10^3/uL (1.8-7.7); Neutrophils % 65.3 %; Nucleated Red Blood Cells % 0 %; Platelet Count 56 10^3/cmm (130-400); Red Blood Count 3.68 10^6/uL (4.1-5.3); White Blood Count 7.8 10^3/uL (4.0-10.0)
[2021-10-26 05:14] LABS: Erythrocyte Sedimentation Rate 19 mm/hr (0-10)
[2021-10-26 05:26] LABS: Alanine Aminotransferase 17 U/L (0-41); Albumin Level 2.5 g/dL (3.5-5.2); Alkaline Phosphatase 85 U/L (40-130); Anion Gap 12.8 (5-19); Aspartate Amino Transferase 23 U/L (0-40); Blood Urea Nitrogen 50 mg/dL (8-23); Calcium 10.6 mg/dL (8.5-10.5); Carbon Dioxide 35 mmol/L (22-29); Chloride 92 mmol/L (98-107); Globulin 2.8 g/dL (1.3-4.6); Glomerular Filtration Rate 35.5 mL/min (90-130); Glucose 85 mg/dL (65-115); Magnesium 2.1 mg/dL (1.7-2.3); Osmolality Calculated 295 mOsm/kg (285-295); Phosphorus 3.1 mg/dL (2.5-4.5); Potassium 3.8 mmol/L (3.5-5.1); Sodium 136 mmol/L (136-145); Total Bilirubin 1.4 mg/dL (0.15-1.2); Total Protein 5.3 g/dL (6.6-8.7)
[2021-10-26] MEDS: potassium chloride ER 20 mEq Tablet 40 MEQ PO (05:54)
[2021-10-26] MEDS: gabapentin 100 mg Capsule PO (09:39)
[2021-10-26] MEDS: levothyroxine 100 mcg SDV IVP (09:39)
--- NOTE | 2021-10-26 12:06 | PC.CHAP ---
Pastoral Care Encounter/Spiritual Assessment Type of Contact [] Declined district or district office director visit [] Patient/Family/Request visit [] Outpatient visit [] Follow-up visit [] Physician referral [] Code/Alert [x] Routine visit [] Staff referral [] Actively dying [] Patient sleeping [] Family support [] [] Out of room [] Palliative care [] [] Receiving care in room [] Pre-surgical visit [] Trauma [] Long length of stay [] ICU visit [] Other: Relational/Emotional Strength [] Patient feels connected with others/family/visitors/staff [] Distress [] Loneliness/isolation [] Abandonment Spirituality of Patient [x] Person of Celena [] Attends Anabaptist of their Celena [] Believes in Prayer [] Reads Bible or Jain materials [] There are Spiritual issues to be addressed Maintenance Worker House Trailer Interventions [x] Prayer [] Active listening [] Non-anxious presence [] Spiritual/emotional support [] Crisis/trauma care [] Spiritual counseling [] Bereavement support [] Provided bereavement packet [] Provided Bible/devotional materials [] Provided toy/stuffed animal, coloring book to patient or family member [] Provided Communion [] Anointing/[place] [] Salvation [x] Completed spiritual assessment [] Other: Impact on Illness or Injury [] Angry [] Fearful [] Anxious [] Often cries [] Exhaustion [] Unable to work [] Unable to attend oriental orthodox [] Unable to walk/stand [] Unable to read [] Unable to drive [] Unable to eat/drink [] Unable to sleep [] Unable to be with family [] Patient intubated [] Other: Summary Time spent with patient 20 min
--- NOTE | 2021-10-26 16:00 | XRR_ITS ---
PROCEDURE INFORMATION: Exam: XR Chest Exam date and time: 10/26/2021 6:19 AM Age: 66 years old Clinical indication: Shortness of breath; Additional info: Post small volume thoracentesis right lung TECHNIQUE: Imaging protocol: Radiologic exam of the chest. Views: 1 view. COMPARISON: CR XR chest 1V portable [id number] 10/23/2021 2:26 PM FINDINGS: Lungs: Hazy infrahilar airspace opacities are nonspecific. Reduced lung volumes. Pleural spaces: Small pleural effusion suspected. Negative for pneumothorax. Heart/Mediastinum: Unremarkable. No cardiomegaly. Bones/joints: Several old right posterior upper rib fractures. XR/XR chest 1V portable [id number] IMPRESSION: Negative for pneumothorax complication after thoracentesis.
--- NOTE | 2021-10-26 18:15 | P.PN_ITS ---
Subjective Subjective: S/p right thoracentesis: Pleural fluid is positive for malignant cells. Case has been discussed with Dr. Nettles. Patient will follow him as outpatient, he will also follow oncology as outpatient, patient is a candidate for Pleurx catheter. Medications: Medication Review Details: Generic Name Dose Route Start Last Admin Trade Name Ositoq PRN Reason Stop Dose Admin Famotidine 20 mg 10/23/21 21:43 10/26/21 16:25 Famotidine 20 Mg /2 Ml Inj IVP Not Given Q12H SREEDHAR Gabapentin 100 mg 10/24/21 09:00 10/26/21 16:47 Gabapentin 100 M g Capsule PO Not Given BID SREEDHAR Levothyroxine Sodi um 100 mcg 10/23/21 19:20 10/26/21 09:39 Levothyroxine 10 0 Mcg Sdv IVP 100 mcg DAILY SREEDHAR Administration Vitals/I&O/Wt Last Vital Signs Temp 98.4 F 10/26/21 16:00 Pulse 98 10/26/21 16:00 Resp 18 10/26/21 16:00 BP 108/64 10/26/21 16:00 Pulse Ox 94 10/26/21 16:00 O2 Del Method 10/26/21 12:00 O2 Flow Rate 2 10/25/21 21:00 FiO2 2 10/24/21 19:46 10/26/21 10/26/21 10/26/21 06:59 14:59 22:59 Intake Total 480 / 480 Balance 480 / 480 Weight last 48 hrs Weight 79.787 kg Weight 81.737 kg Physical Exam Const: COMMON NORMALS: patient oriented x3 HENMT: COMMON NORMALS: normocephalic, atraumatic, hearing grossly normal bilaterally and external ears normal HEAD & SCALP: normocephalic and atraumatic EXTERNAL EAR: Yes external ears normal Resp: COMMON NORMALS: normal respiratory effort, No retractions, No use of accessory muscles and clear to auscultation bilaterally EFFORT & INSPECTION: Yes symmetric chest movement AUSCULTATION: clear to auscultation bilaterally Cardio: COMMON NORMALS: regular rate, regular rhythm, S1 normal heart sound present, S2 normal heart sound present, No gallops present (Cardio), No murmurs present (Cardio), No rub (Cardio) and Peripheral pulses 2+ throughout RATE: regular rate RHYTHM: regular rhythm HEART SOUNDS: S1 normal heart sound present and S2 normal heart sound present PERIPHERAL PULSES: Peripheral pulses 2+ throughout GI: COMMON NORMALS: Normal to inspection, nondistended, normoactive bowel sounds present, Soft to palpation, non-tender, No hepatosplenomegaly present and no masses AUSCULTATION: Yes normoactive bowel sounds PALPATION: Yes Soft to palpation and Yes No hepatosplenomegaly present RECTAL EXAM: Yes deferred Extremity: COMMON NORMALS: no clubbing, cyanosis or edema and no pedal edema Neuro: COMMON NORMALS: patient oriented x3 Data : 10/26/21 04:15 10/26/21 04:15 Micro: Microbiology 10/25/21 18:28 Gram Stain - Final Pleural Fluid A&P Assessment and plan (1) Recurrent right pleural effusion: Patient is short of breath but only borderline hypoxemic. We will support with oxygen I will likely proceed with thoracentesis today with additional cytology as time allows The patient should start incentive spirometry Physical therapy has seen the patient and he is able to walk with PT with Occupational Therapy was able to sit up on his own and put on his socks. Patient has rapid decline in I have high suspicion for malignancy. Due to being ill prepared with what I thought was the right kidney but really was not a thoracentesis or paracentesis tray but a percutaneous insertion tray I was unable to collect enough fluid for full drainage of the right pleural space. Will order only cytology and cell count and order an ultrasound-guided thoracentesis in the radiology department. Nurses checked with emergency department and they state they did not have the right tray Status: Acute (2) Omental mass: If the fluid is not overtly bloody and likely to give a diagnosis on the pleural fluid I think we should proceed with laparoscopy and I will consult Dr. Mustafa encourage nutrition Status: Acute (3) Hypokalemia: Replaced but still low Diuresis limited by apparent cancer, low albumin and low thyroid Status: Acute (4) Acute kidney injury superimposed on chronic kidney disease: renal function improving. replace potassium. Status: Acute (5) Hypothyroid: Initiate IV levothyroxine 100 mcg daily first dose now Status: Acute Attestations Medical Necessity Statement*: Patient needs to be in hospital for management of recurrent right-sided malignant pleural effusion. 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
[2021-10-26] MEDS: famotidine 20 mg/2 mL INJ IVP (23:44)
[2021-10-27] VITALS (15 sets, daily range): BP systolic 104–125; BP diastolic 59–77; PULSE 93–118; RESP 16–18; TEMP 36.3–36.9; O2SAT 90–97
[2021-10-27 05:15] LABS: Basophils % 0.5 %; Eosinophils # 0.2 10^3/uL (0.0-0.8); Eosinophils % 2.6 %; Hematocrit 38.7 % (42.0-52.0); Hemoglobin 12.2 g/dL (11.7-16.6); Lymphocytes # 1.3 10^3/uL (0.8-4.8); Lymphocytes % 15.8 %; Mean Corpuscular HGB Conc 31.5 g/dL (30.0-36.0); Mean Corpuscular Hemoglobin 31.9 pg (28.0-34.0); Monocytes # 1.4 10^3/uL (0.2-0.9); Monocytes % 17.5 %; Neutrophils # 5.15 10^3/uL (1.8-7.7); Nucleated Red Blood Cells % 0 %; Platelet Count 53 10^3/cmm (130-400); Red Blood Count 3.83 10^6/uL (4.1-5.3); Red Cell Distribution Width 17.2 % (12.1-15.1); White Blood Count 8.2 10^3/uL (4.0-10.0)
[2021-10-27 05:27] LABS: INR 1.03 (0.8-1.2)
[2021-10-27 05:33] LABS: Anion Gap 17.3 (5-19); Blood Urea Nitrogen 49 mg/dL (8-23); Calcium 11.2 mg/dL (8.5-10.5); Carbon Dioxide 30 mmol/L (22-29); Chloride 97 mmol/L (98-107); Glomerular Filtration Rate 31.7 mL/min (90-130); Glucose 95 mg/dL (65-115); Osmolality Calculated 303 mOsm/kg (285-295); Potassium 4.3 mmol/L (3.5-5.1); Sodium 140 mmol/L (136-145)
--- NOTE | 2021-10-27 08:00 | CT_ITS ---
WS: [id number] INDICATION: CT-guided omental biopsy TECHNIQUE: Consent was obtained from family member via the referring service. Anesthesia was present for sedation due to patient confusion. Patient was positioned supine on the CT table. RIGHT abdominal omentum was localized with noncontrast CT imaging. After 1% lidocaine, using CT fluoroscopic guidanc e 5-6 core samples were obtained of the RIGHT abdominal omentum using a coaxial 18-gauge biopsy devic e. Patient tolerated the procedure well. No immediate applications. CT/CT biopsy abdomen percut [id number] IMPRESSION: Uncomplicated RIGHT omental CT-guided biopsy. Pathology is pending.
[2021-10-27] MEDS: levothyroxine 100 mcg SDV IVP (10:09)
--- NOTE | 2021-10-27 10:58 | P.ANESASSM_ITS ---
Pre-Anesthetic Assessment Height/Weight: Height 1.83 m Weight 76.158 kg Temp Pulse Resp BP Pulse Ox O2 Del Method O2 Flow Rate 97.8 F 104 H 16 112/73 96 2 10/27/21 07:49 10/27/21 08:26 10/27/21 08:26 10/27/21 07:49 10/27/21 08:26 10/27/21 08:26 10/27/21 08:26 FiO2 2 10/24/21 19:46 Operation Date: 10/27/21 10:[address] Drain Placement(Not Applicable) - DOCTOR NOT ON FILE Familial anesthetic complications: Limited hx obtained from patient's son Last intake: 10/26/21 Exam alert, clear to auscultation bilaterally and regular rate & rhythm Unable to answer orientation questions, follows commands Airway Submandibular: within normal limits Cervical ROM: within normal limits Mallampati: Class II Comments: Comments: missing teeth Pulmonary S/P right thoracentesis w/ malignant cells pleurx CXR 10/26/21 COMPARISON: CR XR chest 1V portable [id number] 10/23/2021 2:26 PM FINDINGS: Lungs: Hazy infrahilar airspace opacities are nonspecific. Reduced lung volumes. Pleural spaces: Small pleural effusion suspected. Negative for pneumothorax. Heart/Mediastinum: Unremarkable. No cardiomegaly. Bones/joints: Several old right posterior upper rib fractures. XR/XR chest 1V portable [id number] IMPRESSION: Negative for pneumothorax complication after thoracentesis. CV/HEM Congestive Heart Failure and Hypertension Thrombocytopenia platelet count 53 EKG 10/23/21 ? Interpretive Statements SINUS RHYTHM MODERATE INTRAVENTRICULAR CONDUCTION DELAY? [105+ ms QRS DURATION, 80+ ms Q/S IN V1/V2, NO Q AND 60+ ms R IN I/aVL/V5/V6] Compared to ECG 10/23/2021 16:45:13 No significant changes Electronically Signed On 10-25-2021 13:31:54 CDT by Asher Funez M.D. [email or web address]: [email or web address] Chronic Renal Failure Acute on chronic renal failure BPH Hypokalemia GI Omental mass Metabolic Thyroid Disease Musc/skel Neck CT 10/23/21 CT/CT cervical spin wo con* [id number] IMPRESSION: ? 1.? No acute cervical spine fracture. 2.? Moderate bilateral foraminal stenosis at C5-6 and C6-7. ? ? Neuropsych Depression Head CT 10/23/21 CT/CT head wo con* [id number] IMPRESSION: ? 1.? No acute intracranial hemorrhage or edema. 2.? Mild atrophy and small vessel ischemic disease. 3.? No skull fracture. ? Anesthetic Plan ASA status: 3 Anesthesia: Anesthesia Evaluation, General and MAC Other: I discussed with the patient's son on the phone the risks, goals, and benefits of MAC and general anesthesia. We discussed spectrum of MAC anesthesia including conversion to general as well as possibility of recall of intraoperative stimuli including discomfort/pain. Son agrees to proceed and consents to anesthesia. Risk of > 500 ml blood loss (7ml/kg in children): No Medications/Allergies Home Medications Medication Instructions Recorded Confirmed Last Taken Type albuterol sulfate 90 mcg/actuation 2 puff inhalation Q6H PRN 10/10/21 10/23/21 Unknown History aerosol inhaler Shortness Of Breath alprazolam 1 mg tablet 1 mg PO BEDTIME PRN Anxiety 10/10/21 10/23/21 Unknown History brexpiprazole 0.5 mg tablet 0.5 mg PO DAILY 10/10/21 10/23/21 10/09/21 History (Rexulti) citalopram 40 mg tablet 40 mg PO DAILY 10/10/21 10/23/21 10/09/21 History fluticasone propionate 115 2 puff inhalation Q12H 10/10/21 10/23/21 10/10/21 History mcg-salmeterol 21 mcg/actuation HFA inhaler (Advair HFA) fluticasone propionate 50 2 spray intranasal BID PRN Nasal 10/10/21 10/23/21 Unknown History mcg/actuation nasal Congestion spray,suspension gabapentin 100 mg capsule 100 mg PO BID 10/10/21 10/23/21 10/09/21 History prazosin 1 mg capsule 1 - 3 mg PO BEDTIME 10/10/21 10/23/21 10/09/21 History tamsulosin 0.4 mg capsule 0.8 mg PO DAILY 10/10/21 10/23/21 10/09/21 History donepezil 5 mg tablet 10 mg PO BEDTIME #60 tabs 10/12/21 10/23/21 Unknown Rx ferrous gluconate 324 mg (37.5 mg 324 mg PO BIDWM #60 tabs 10/12/21 10/23/21 Unknown Rx iron) tablet folic acid 1 mg tablet 1 mg PO BID #60 tabs 10/12/21 10/23/21 Unknown Rx furosemide 40 mg tablet (Lasix) 40 mg PO BID #60 tabs 10/12/21 10/23/21 Unknown Rx metolazone 5 mg tablet 5 mg PO DAILY PRN shortness of 10/12/21 10/23/21 Unknown Rx breath #14 tabs Allergies Allergy/AdvReac Type Severity Reaction Status Date / Time mold Allergy Intermediate unknown Uncoded 10/10/21 13:12 Current Medications Generic Name Dose Route Start Last Admin Trade Name Freq PRN Reason Stop Dose Admin Famotidine 20 mg 10/23/21 21:43 10/26/21 23:44 Famotidine 20 Mg/2 Ml Inj IVP 20 mg Q12H SREEDHAR Administration Gabapentin 100 mg 10/24/21 09:00 10/27/21 10:18 Gabapentin 100 Mg Capsule PO Not Given BID SREEDHAR Levothyroxine Sodium 100 mcg 10/23/21 19:20 10/27/21 10:09 Levothyroxine 100 Mcg Sdv IVP 100 mcg DAILY SREEDHAR Administration Additional Medication Information Generic Name Dose Route Start Last Admin Trade Name Freq PRN Reason Stop Dose Admin Famotidine 20 mg 10/23/21 21:43 10/26/21 16:25 Famotidine 20 Mg/2 Ml Inj IVP Not Given Q12H SREEDHAR Gabapentin 100 mg 10/24/21 09:00 10/26/21 16:47 Gabapentin 100 Mg Capsule PO Not Given BID SREEDHAR Levothyroxine Sodium 100 mcg 10/23/21 19:20 10/26/21 09:39 Levothyroxine 100 Mcg Sdv IVP 100 mcg DAILY SREEDHAR Administration PFSH Anesthesia Medical History BPH (benign prostatic hyperplasia) Depression Hypertension Hypothyroid Pneumothorax Renal failure Rib fracture Data Anesthesia : 10/27/21 04:39 10/27/21 04:39 Short CBC 10/26/21 10/27/21 Range/Units 04:15 04:39 WBC 7.8 8.2 (4.0-10.0) 10^3/uL Hgb 11.8 12.2 (11.7-16.6) g/dL Hct 36.4 L 38.7 L (42.0-52.0) % MCV 98.9 H 101.0 H (80-94) fl Plt Count 56 L 53 L (130-400) 10^3/cmm Neut % (Auto) 65.3 63.0 % Neut # (Auto) 5.07 5.15 (1.8-7.7) 10^3/uL BMP 10/26/21 10/27/21 04:15 04:39 Sodium 136 140 Potassium 3.8 4.3 Chloride 92 L 97 L Carbon Dioxide 35 H 30 H BUN 50 H 49 H Creatinine 1.9 H 2.1 H Glucose 85 95 Calcium 10.6 H 11.2 H Liver Function 10/26/21 Range/Units 04:15 Total Bilirubin 1.4 H (0.15-1.2) mg/dL AST 23 (0-40) U/L ALT 17 (0-41) U/L Alkaline Phosphatase 85 (40-130) U/L Albumin 2.5 L (3.5-5.2) g/dL Coags 10/26/21 10/27/21 04:15 04:39 ESR 19 H PT 13.80 INR 1.03 Microbiology 10/25/21 18:28 Gram Stain - Final Pleural Fluid Body Fluid Culture - Preliminary Cardiac Studies: Echocardiogram 10/10/21
[2021-10-27] MEDS: sodium chloride 0.9% 1,000 ML 30 ML IV (11:10)
--- NOTE | 2021-10-27 11:13 | PC.NURSE ---
PT OFF [facility] FLOOR AT [facility]. 1100 FOR PRECEDURE
--- NOTE | 2021-10-27 15:19 | PM.PN ---
Subjective Subjective: Patient was seen and examined this morning, he was confused this morning, possibly sun downing. Due for CT-guided omental caking biopsy. He has also been started on his home medications. Medications: Medication Review Details: Generic Name Dose Route Start Last Admin Trade Name Samir PRN Reason Stop Dose Admin Famotidine 20 mg 10/23/21 21:43 10/27/21 14:09 Famotidine 20 Mg /2 Ml Inj IVP Not Given Q12H SREEDHAR Gabapentin 100 mg 10/24/21 09:00 10/27/21 10:18 Gabapentin 100 M g Capsule PO Not Given BID SREEDHAR Sodium Chloride 1,000 mls @ 30 ml s/hr 10/27/21 10:15 10/27/21 12:19 Sodium Chloride 0.9% IV Infused .Q24H SREEDHAR Infusion Levothyroxine Sodi um 100 mcg 10/23/21 19:20 10/27/21 10:09 Levothyroxine 10 0 Mcg Sdv IVP 100 mcg DAILY SREEDHAR Administration Vitals/I&O/Wt Last Vital Signs Temp 98.2 F 10/27/21 13:35 Pulse 105 H 10/27/21 13:35 Resp 16 10/27/21 13:35 BP 119/72 10/27/21 13:35 Pulse Ox 95 10/27/21 13:35 O2 Del Method 10/27/21 13:35 O2 Flow Rate 2 10/27/21 12:26 FiO2 2 10/24/21 19:46 10/27/21 10/27/21 10/27/21 06:59 14:59 22:59 Intake Total 700 / 700 Output Total 125 / 125 Balance 575 / 575 Weight last 48 hrs Weight 76.158 kg Weight 79.787 kg Physical Exam Const: COMMON NORMALS: patient oriented x3 HENMT: COMMON NORMALS: normocephalic, atraumatic, hearing grossly normal bilaterally and external ears normal HEAD & SCALP: normocephalic and atraumatic EXTERNAL EAR: Yes external ears normal Resp: COMMON NORMALS: normal respiratory effort, No retractions, No use of accessory muscles and clear to auscultation bilaterally EFFORT & INSPECTION: Yes symmetric chest movement AUSCULTATION: clear to auscultation bilaterally Cardio: COMMON NORMALS: regular rate, regular rhythm, S1 normal heart sound present, S2 normal heart sound present, No gallops present (Cardio), No murmurs present (Cardio), No rub (Cardio) and Peripheral pulses 2+ throughout RATE: regular rate RHYTHM: regular rhythm HEART SOUNDS: S1 normal heart sound present and S2 normal heart sound present PERIPHERAL PULSES: Peripheral pulses 2+ throughout GI: COMMON NORMALS: Normal to inspection, nondistended, normoactive bowel sounds present, Soft to palpation, non-tender, No hepatosplenomegaly present and no masses AUSCULTATION: Yes normoactive bowel sounds PALPATION: Yes Soft to palpation and Yes No hepatosplenomegaly present RECTAL EXAM: Yes deferred Extremity: COMMON NORMALS: no clubbing, cyanosis or edema and no pedal edema Neuro: COMMON NORMALS: patient oriented x3 Data : 10/27/21 04:39 10/27/21 04:39 Micro: Microbiology 10/25/21 18:28 Gram Stain - Final Pleural Fluid Body Fluid Culture - Preliminary A&P Assessment and plan (1) Recurrent right pleural effusion: Patient is short of breath but only borderline hypoxemic. We will support with oxygen I will likely proceed with thoracentesis today with additional cytology as time allows The patient should start incentive spirometry Physical therapy has seen the patient and he is able to walk with PT with Occupational Therapy was able to sit up on his own and put on his socks. Patient has rapid decline in I have high suspicion for malignancy. Due to being ill prepared with what I thought was the right kidney but really was not a thoracentesis or paracentesis tray but a percutaneous insertion tray I was unable to collect enough fluid for full drainage of the right pleural space. Will order only cytology and cell count and order an ultrasound-guided thoracentesis in the radiology department. Nurses checked with emergency department and they state they did not have the right tray Status: Acute (2) Omental mass: If the fluid is not overtly bloody and likely to give a diagnosis on the pleural fluid I think we should proceed with laparoscopy and I will consult Dr. Mustafa encourage nutrition Status: Acute (3) Hypokalemia: Replaced but still low Diuresis limited by apparent cancer, low albumin and low thyroid Status: Acute (4) Acute kidney injury superimposed on chronic kidney disease: renal function improving. replace potassium. Status: Acute (5) Hypothyroid: Initiate IV levothyroxine 100 mcg daily first dose now Status: Acute Attestations Medical Necessity Statement*: Patient needs to be in hospital for CT-guided biopsy. Coding Level of Care Code Acute Casket Upholsterer for Chg Fwd Diagnoses Recurrent right pleural effusion J90 Omental mass K66.8 Hypokalemia E87.6 Acute kidney injury superimposed on chronic kidney disease N17.9; N18.9 Hypothyroid E03.9
--- NOTE | 2021-10-27 15:55 | ANE.PACU2 ---
Inpatient post-anesthesia follow up: Airway intact: Yes Vital signs: Temperature 97.6 F Pulse Rate 108 Respiratory Rate 16 Blood Pressure 117/70 Pulse Oximetry 93 Oxygen Delivery Me thod Nasal Cannula Oxygen Flow Rate 2 Fraction of Inspir ed Oxygen 2 Hydration adequate: Yes Nausea and vomiting: No Pain level: 1 Mental status: Baseline
[2021-10-27] MEDS: gabapentin 100 mg Capsule PO (17:56)
[2021-10-27] MEDS: donepezil 5 MG Tablet 10 MG PO (20:42)
[2021-10-28] VITALS (7 sets, daily range): BP systolic 109–132; BP diastolic 57–80; PULSE 100–112; RESP 16–18; TEMP 36.5–37.4; O2SAT 90–94
[2021-10-28] MEDS: famotidine 20 mg/2 mL INJ IVP (00:02)
[2021-10-28 05:12] LABS: Basophils % 0.2 %; Eosinophils # 0.1 10^3/uL (0.0-0.8); Eosinophils % 0.8 %; Hematocrit 36.6 % (42.0-52.0); Hemoglobin 11.4 g/dL (11.7-16.6); Lymphocytes % 22.2 %; Mean Corpuscular HGB Conc 31.1 g/dL (30.0-36.0); Mean Corpuscular Hemoglobin 32.2 pg (28.0-34.0); Mean Corpuscular Volume 103.4 fl (80-94); Mean Platelet Volume 11.8 fL (7.4-10.4); Monocytes # 1.3 10^3/uL (0.2-0.9); Monocytes % 14.4 %; Neutrophils # 5.57 10^3/uL (1.8-7.7); Neutrophils % 61.7 %; Nucleated Red Blood Cells % 0 %; Platelet Count 66 10^3/cmm (130-400); Red Blood Count 3.54 10^6/uL (4.1-5.3); Red Cell Distribution Width 17.3 % (12.1-15.1)
[2021-10-28 05:33] LABS: Anion Gap 19.8 (5-19); Blood Urea Nitrogen 58 mg/dL (8-23); Calcium 10.9 mg/dL (8.5-10.5); Carbon Dioxide 26 mmol/L (22-29); Chloride 100 mmol/L (98-107); Glomerular Filtration Rate 25.9 mL/min (90-130); Glucose 99 mg/dL (65-115); Osmolality Calculated 310 mOsm/kg (285-295); Potassium 3.8 mmol/L (3.5-5.1); Sodium 142 mmol/L (136-145)
[2021-10-28] MEDS: gabapentin 100 mg Capsule PO ×2 (10:10→17:43)
[2021-10-28] MEDS: citalopram 20 mg Tablet 40 MG PO (10:11)
[2021-10-28] MEDS: ARIPiprazole 10 mg Tablet 5 MG PO (10:12)
[2021-10-28] MEDS: levothyroxine 100 mcg SDV IVP ×2 (10:51→10:57)
--- NOTE | 2021-10-28 12:16 | PM.PN ---
Subjective Subjective: Patient was seen and examined this morning, still has some element of confusion. Home antipsychotic medications have been started. Medications: Medication Review Details: Generic Name Dose Route Start Last Admin Trade Name Samir PRN Reason Stop Dose Admin Aripiprazole 5 mg 10/28/21 09:00 10/28/21 10:12 Aripiprazole 10 Mg Tablet PO 5 mg DAILY SREEDHAR Administration Citalopram Hydrobr omide 40 mg 10/28/21 09:00 10/28/21 10:11 Citalopram 20 Mg Tablet PO 40 mg DAILY SREEDHAR Administration Donepezil HCl 10 mg 10/27/21 21:00 10/27/21 20:42 Donepezil 5 Mg T ablet PO 10 mg BEDTIME SREEDHAR Administration Famotidine 20 mg 10/23/21 21:43 10/28/21 00:02 Famotidine 20 Mg /2 Ml Inj IVP 20 mg Q12H SREEDHAR Administration Gabapentin 100 mg 10/24/21 09:00 10/28/21 10:10 Gabapentin 100 M g Capsule PO 100 mg BID SREEDHAR Administration Levothyroxine Sodi um 100 mcg 10/23/21 19:20 10/28/21 10:57 Levothyroxine 10 0 Mcg Sdv IVP 100 mcg DAILY SREEDHAR Administration Vitals/I&O/Wt Last Vital Signs Temp 98.3 F 10/28/21 11:45 Pulse 106 H 10/28/21 11:45 Resp 18 10/28/21 11:45 BP 121/78 10/28/21 11:45 Pulse Ox 90 10/28/21 11:45 O2 Del Method 10/28/21 11:45 O2 Flow Rate 2 10/27/21 12:26 FiO2 2 10/24/21 19:46 10/27/21 10/28/21 10/28/21 22:59 06:59 14:59 Intake Total 120 / 820 240 / 240 Balance 120 / 695 240 / 240 Weight last 48 hrs Weight 71.384 kg Weight 76.158 kg Physical Exam HENMT: COMMON NORMALS: normocephalic, atraumatic, hearing grossly normal bilaterally and external ears normal HEAD & SCALP: normocephalic and atraumatic EXTERNAL EAR: Yes external ears normal Resp: COMMON NORMALS: normal respiratory effort, No retractions, No use of accessory muscles and clear to auscultation bilaterally EFFORT & INSPECTION: Yes symmetric chest movement AUSCULTATION: clear to auscultation bilaterally Cardio: COMMON NORMALS: regular rate, regular rhythm, S1 normal heart sound present, S2 normal heart sound present, No gallops present (Cardio), No murmurs present (Cardio), No rub (Cardio) and Peripheral pulses 2+ throughout RATE: regular rate RHYTHM: regular rhythm HEART SOUNDS: S1 normal heart sound present and S2 normal heart sound present PERIPHERAL PULSES: Peripheral pulses 2+ throughout GI: COMMON NORMALS: Normal to inspection, nondistended, normoactive bowel sounds present, Soft to palpation, non-tender, No hepatosplenomegaly present and no masses AUSCULTATION: Yes normoactive bowel sounds PALPATION: Yes Soft to palpation and Yes No hepatosplenomegaly present RECTAL EXAM: Yes deferred Extremity: COMMON NORMALS: no clubbing, cyanosis or edema and no pedal edema Data : 10/28/21 04:23 10/28/21 04:23 Micro: Microbiology 10/25/21 18:28 Gram Stain - Final Pleural Fluid Body Fluid Culture - Preliminary 10/25/21 18:17 Mycobacterial Smear - Preliminary Body Fluids - Pleura A&P Assessment and plan (1) Recurrent right pleural effusion: Patient is short of breath but only borderline hypoxemic. We will support with oxygen I will likely proceed with thoracentesis today with additional cytology as time allows The patient should start incentive spirometry Physical therapy has seen the patient and he is able to walk with PT with Occupational Therapy was able to sit up on his own and put on his socks. Patient has rapid decline in I have high suspicion for malignancy. Due to being ill prepared with what I thought was the right kidney but really was not a thoracentesis or paracentesis tray but a percutaneous insertion tray I was unable to collect enough fluid for full drainage of the right pleural space. Will order only cytology and cell count and order an ultrasound-guided thoracentesis in the radiology department. Nurses checked with emergency department and they state they did not have the right tray Status: Acute (2) Omental mass: If the fluid is not overtly bloody and likely to give a diagnosis on the pleural fluid I think we should proceed with laparoscopy and I will consult Dr. Mustafa encourage nutrition Status: Acute (3) Hypokalemia: Replaced but still low Diuresis limited by apparent cancer, low albumin and low thyroid Status: Acute (4) Acute kidney injury superimposed on chronic kidney disease: renal function improving. replace potassium. Status: Acute (5) Hypothyroid: Initiate IV levothyroxine 100 mcg daily first dose now Status: Acute Plan Disposition: Attempt is being made for placement to nursing homes. If that does not work out due to the circumstances, patient will have to be discharged home. Attestations Medical Necessity Statement*: Continues to be in hospital management of recurrent pleural effusion, Coding Level of Care Code Acute Sanforizing Machine Operator for Chg Fwd Diagnoses Recurrent right pleural effusion J90 Omental mass K66.8 Hypokalemia E87.6 Acute kidney injury superimposed on chronic kidney disease N17.9; N18.9 Hypothyroid E03.9
[2021-10-28 12:46] LABS: Lymphoma Profile (BBPL) See Report
--- NOTE | 2021-10-28 13:01 | PC.SOCIAL ---
Pg 2 IMM Explained to pt's son via phone on IMM. No questions voiced. Provided pt a copy. Initialed, dated, & timed a copy & placed in chart.
[2021-10-28] MEDS: donepezil 5 MG Tablet 10 MG PO (20:08)
[2021-10-29] VITALS (8 sets, daily range): BP systolic 109–120; BP diastolic 62–70; PULSE 86–100; RESP 16–22; TEMP 36.7–37; O2SAT 88–97
[2021-10-29 07:55] LABS: Basophils % 0.3 %; Eosinophils # 0.1 10^3/uL (0.0-0.8); Eosinophils % 1.8 %; Hematocrit 36.7 % (42.0-52.0); Hemoglobin 11.5 g/dL (11.7-16.6); Lymphocytes # 1.4 10^3/uL (0.8-4.8); Lymphocytes % 17.9 %; Mean Corpuscular HGB Conc 31.3 g/dL (30.0-36.0); Mean Corpuscular Volume 102.2 fl (80-94); Mean Platelet Volume 11.5 fL (7.4-10.4); Monocytes # 1.2 10^3/uL (0.2-0.9); Monocytes % 14.4 %; Neutrophils # 5.21 10^3/uL (1.8-7.7); Neutrophils % 65.1 %; Nucleated Red Blood Cells % 0 %; Platelet Count 69 10^3/cmm (130-400); Red Blood Count 3.59 10^6/uL (4.1-5.3); Red Cell Distribution Width 17.2 % (12.1-15.1)
[2021-10-29 08:18] LABS: Anion Gap 17.1 (5-19); Blood Urea Nitrogen 70 mg/dL (8-23); Calcium 10.5 mg/dL (8.5-10.5); Carbon Dioxide 33 mmol/L (22-29); Chloride 102 mmol/L (98-107); Glomerular Filtration Rate 23.7 mL/min (90-130); Glucose 98 mg/dL (65-115); Osmolality Calculated 326 mOsm/kg (285-295); Potassium 4.1 mmol/L (3.5-5.1); Sodium 148 mmol/L (136-145)
[2021-10-29] MEDS: gabapentin 100 mg Capsule PO ×2 (09:44→17:51)
[2021-10-29] MEDS: ARIPiprazole 10 mg Tablet 5 MG PO (09:44)
[2021-10-29] MEDS: citalopram 20 mg Tablet 40 MG PO (09:46)
[2021-10-29] MEDS: levothyroxine 150 mcg Tablet PO (11:16)
[2021-10-29] MEDS: dextrose 5% 1,000 ML 50 ML IV (15:49)
--- NOTE | 2021-10-29 16:56 | PC.NURSE ---
spoke with dr friend who suggested using mittens to maintain iv access. there are no mittens available in the hospital. patient removed iv even though it was secured with kerlex and tape
--- NOTE | 2021-10-29 18:12 | P.PN_ITS ---
Subjective Subjective: Patient was seen and examined this morning, still has confusion, continue to remove IV lines out. 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 Medications: Medication Review Details: Generic Name Dose Route Start Last Admin Trade Name Samir PRN Reason Stop Dose Admin Aripiprazole 5 mg 10/28/21 09:00 10/29/21 09:44 Aripiprazole 10 Mg Tablet PO 5 mg DAILY SREEDHAR Administration Citalopram Hydrobr omide 40 mg 10/28/21 09:00 10/29/21 09:46 Citalopram 20 Mg Tablet PO 40 mg DAILY SREEDHAR Administration Donepezil HCl 10 mg 10/27/21 21:00 10/28/21 20:08 Donepezil 5 Mg T ablet PO 10 mg BEDTIME SREEDHAR Administration Famotidine 20 mg 10/23/21 21:43 10/29/21 11:20 Famotidine 20 Mg /2 Ml Inj IVP Not Given Q12H SREEDHAR Gabapentin 100 mg 10/24/21 09:00 10/29/21 17:51 Gabapentin 100 M g Capsule PO 100 mg BID SREEDHAR Administration Dextrose 1,000 mls @ 50 ml s/hr 10/29/21 13:30 10/29/21 15:49 D5w IV 50 mls/hr .Q20H SREEDHAR Administration Levothyroxine Sodi um 150 mcg 10/29/21 10:45 10/29/21 11:16 Levothyroxine 15 0 Mcg Tablet PO 150 mcg DAILY SREEDHAR Administration Vitals/I&O/Wt Last Vital Signs Temp 98.2 F 10/29/21 15:57 Pulse 86 10/29/21 15:57 Resp 18 10/29/21 15:57 BP 112/62 10/29/21 15:57 Pulse Ox 96 10/29/21 15:57 O2 Del Method 10/29/21 15:57 O2 Flow Rate 2 10/29/21 03:41 FiO2 2 10/24/21 19:46 10/29/21 10/29/21 10/29/21 06:59 14:59 22:59 Intake Total 480 / 480 Balance 480 / 480 Weight last 48 hrs Weight 70.108 kg Weight 71.384 kg Physical Exam Const: COMMON NORMALS: patient oriented x3 HENMT: COMMON NORMALS: normocephalic, atraumatic, hearing grossly normal bilaterally and external ears normal HEAD & SCALP: normocephalic and atraumatic EXTERNAL EAR: Yes external ears normal Resp: COMMON NORMALS: normal respiratory effort, No retractions, No use of accessory muscles and clear to auscultation bilaterally EFFORT & INSPECTION: Yes symmetric chest movement AUSCULTATION: clear to auscultation bilaterally Cardio: COMMON NORMALS: regular rate, regular rhythm, S1 normal heart sound present, S2 normal heart sound present, No gallops present (Cardio), No murmurs present (Cardio), No rub (Cardio) and Peripheral pulses 2+ throughout RATE: regular rate RHYTHM: regular rhythm HEART SOUNDS: S1 normal heart sound present and S2 normal heart sound present PERIPHERAL PULSES: Peripheral pulses 2+ throughout GI: COMMON NORMALS: Normal to inspection, nondistended, normoactive bowel sounds present, Soft to palpation, non-tender, No hepatosplenomegaly present and no masses AUSCULTATION: Yes normoactive bowel sounds PALPATION: Yes Soft to palpation and Yes No hepatosplenomegaly present RECTAL EXAM: Yes deferred Extremity: COMMON NORMALS: no clubbing, cyanosis or edema and no pedal edema Neuro: COMMON NORMALS: patient oriented x3 Data : 10/29/21 07:22 10/29/21 07:22 Micro: Microbiology 10/25/21 18:28 Gram Stain - Final Pleural Fluid Body Fluid Culture - Final A&P Assessment and plan (1) Recurrent right pleural effusion: Patient is short of breath but only borderline hypoxemic. We will support with oxygen I will likely proceed with thoracentesis today with additional cytology as time allows The patient should start incentive spirometry Physical therapy has seen the patient and he is able to walk with PT with Occupational Therapy was able to sit up on his own and put on his socks. Patient has rapid decline in I have high suspicion for malignancy. Due to being ill prepared with what I thought was the right kidney but really was not a thoracentesis or paracentesis tray but a percutaneous insertion tray I was unable to collect enough fluid for full drainage of the right pleural space. Will order only cytology and cell count and order an ultrasound-guided thoracentesis in the radiology department. Nurses checked with emergency department and they state they did not have the right tray Status: Acute (2) Omental mass: If the fluid is not overtly bloody and likely to give a diagnosis on the pleural fluid I think we should proceed with laparoscopy and I will consult Dr. Mustafa encourage nutrition Status: Acute (3) Hypokalemia: Replaced but still low Diuresis limited by apparent cancer, low albumin and low thyroid Status: Acute (4) Acute kidney injury superimposed on chronic kidney disease: renal function improving. replace potassium. Status: Acute (5) Hypothyroid: Initiate IV levothyroxine 100 mcg daily first dose now Status: Acute Plan Disposition: Attempt is being made for placement to nursing homes. If that does not work out due to the circumstances, patient will have to be discharged home. Attestations Medical Necessity Statement*: Patient is awaiting placement. Likely discharge in next 24 to 48 hours. Coding Level of Care Code Acute Behavioral Interventionist for Chg Fwd Diagnoses Recurrent right pleural effusion J90 Omental mass K66.8 Hypokalemia E87.6 Acute kidney injury superimposed on chronic kidney disease N17.9; N18.9 Hypothyroid E03.9
[2021-10-29] MEDS: donepezil 5 MG Tablet 10 MG PO (20:09)
[2021-10-30] VITALS (8 sets, daily range): BP systolic 108–114; BP diastolic 61–69; PULSE 88–98; RESP 16–22; TEMP 36.4–36.7; O2SAT 3–95; BMI 20.9
[2021-10-30] MEDS: ARIPiprazole 10 mg Tablet 5 MG PO (08:21)
[2021-10-30] MEDS: gabapentin 100 mg Capsule PO ×2 (08:21→17:48)
[2021-10-30] MEDS: levothyroxine 150 mcg Tablet PO (08:21)
[2021-10-30] MEDS: citalopram 20 mg Tablet 40 MG PO (08:22)
--- NOTE | 2021-10-30 12:04 | PM.DCS ---
Discharge Providers Date of Admission: 10/23/21 21:40 Date of Discharge: October 30, 2021 Attending Provider at Admission: Sunil Silveira MD Attending Provider at Discharge: Rah Whitley MD Primary Care Provider: Josemanuel Negrete DO Diagnoses at Discharge Discharge Diagnosis (1) Recurrent right pleural effusion: Status: Acute (2) Omental mass: Status: Acute (3) Hypokalemia: Status: Acute (4) Acute kidney injury superimposed on chronic kidney disease: Status: Acute (5) Hypothyroid: Status: Acute (6) B-cell lymphoma: Status: Acute Reason for Visit Reason for Visit: swelling feet Hospital Course Hospital Course 66-year-old male with past medical history of hypertension hypothyroidism, BPH depression, was admitted with chief complaint of shortness of breath likely secondary to recurrent right pleural effusion, patient underwent rt sided thoracentesis, removal of 2.4 Ls removed pleural fluid analysis was done was consistent with exudative pleural effusion, was positive for malignant cells. Patient also underwent CT-guided omental biopsy: Pathology report has shown high-grade B-cell lymphoma. Currently family wants patient to see oncologist at [place]. Case was also briefly discussed with the district court bailiff for recurrent right pleural effusion, appointment has been made for possible Pleurx catheter placement.During the hospital stay patient also was having significant amount of confusion, possibly secondary to underlying psych issues, or possible sundowning. For history of hypothyroidism he has been discharged on levothyroxine 150 mcg p.o. daily, patient will have to follow-up with repeat TSH in 3 to 4 weeks, for further dose titration. Overall patient responded well to above medical management and is being discharged stable condition to home, several attempts were made to get patient placed in a usp, but unfortunately he was denied placement.Hence he is being sent home. Physical Exam HENMT: COMMON NORMALS: normocephalic, atraumatic, hearing grossly normal bilaterally and external ears normal HEAD & SCALP: normocephalic and atraumatic EXTERNAL EAR: Yes external ears normal Resp: COMMON NORMALS: normal respiratory effort, No retractions, No use of accessory muscles and clear to auscultation bilaterally EFFORT & INSPECTION: Yes symmetric chest movement AUSCULTATION: clear to auscultation bilaterally Cardio: COMMON NORMALS: regular rate, regular rhythm, S1 normal heart sound present, S2 normal heart sound present, No gallops present (Cardio), No murmurs present (Cardio), No rub (Cardio) and Peripheral pulses 2+ throughout RATE: regular rate RHYTHM: regular rhythm HEART SOUNDS: S1 normal heart sound present and S2 normal heart sound present PERIPHERAL PULSES: Peripheral pulses 2+ throughout GI: COMMON NORMALS: Normal to inspection, nondistended, normoactive bowel sounds present, Soft to palpation, non-tender, No hepatosplenomegaly present and no masses AUSCULTATION: Yes normoactive bowel sounds PALPATION: Yes Soft to palpation and Yes No hepatosplenomegaly present RECTAL EXAM: Yes deferred Extremity: COMMON NORMALS: no clubbing, cyanosis or edema and no pedal edema Discharge Data Studies Completed and Pending Completed Studies During Hospitalization Category Date Time Status CT biopsy abdomen percut [id number] Routine Cat Scan 10/27/21 08:[address] cervical spine wo con [CT cervical spin wo con* Cat Scan 10/23/21 14:44 Completed [id number]] Stat CT head wo con* [id number] Stat Cat Scan 10/23/21 14:44 Completed XR chest 1V portable [id number] Stat Exams 10/23/21 14:20 Completed XR chest 1V portable [id number] Stat Exams 10/26/21 16:00 Completed Pathology: Surgical [PTH] Routine Pth 10/27/21 11:55 Completed Pending at discharge Category Date Time Status Mycobacteria, Culture w/Fluor Routine Lab 10/25/21 18:17 Results Cytology [PTH] Routine Pth 10/25/21 18:17 Received Radiology Impressions Cervical Spine CT 10/23/21 14:44 IMPRESSION: 1. No acute cervical spine fracture. 2. Moderate bilateral foraminal stenosis at C5-6 and C6-7. Head CT 10/23/21 14:44 IMPRESSION: 1. No acute intracranial hemorrhage or edema. 2. Mild atrophy and small vessel ischemic disease. 3. No skull fracture. Chest X-Ray 10/26/21 16:00 IMPRESSION: Negative for pneumothorax complication after thoracentesis. Abdomen Biopsy CT 10/27/21 08:00 IMPRESSION: Uncomplicated RIGHT omental CT-guided biopsy. Pathology is pending. Laboratory Results WBC 8.0 10^3/uL (4.0-10.0) 10/29/21 07:22 RBC 3.59 10^6/uL (4.1-5.3) L 10/29/21 07:22 Hgb 11.5 g/dL (11.7-16.6) L 10/29/21 07:22 Hct 36.7 % (42.0-52.0) L 10/29/21 07: MCV 102.2 fl (80-94) H 10/29/21 07:22 MCH 32.0 pg (28.0-34.0) 10/29/21 07: MCHC 31.3 g/dL (30.0-36.0) 10/29/21 07: RDW 17.2 % (12.1-15.1) H 10/29/21 07:22 Plt Count 69 10^3/cmm (130-400) L 10/29/21 07: MPV 11.5 fL (7.4-10.4) H 10/29/21 07:22 Neut % (Auto) 65.1 % 10/29/21 07:22 Lymph % (Auto) 17.9 % 10/29/21 07: [place] % (Auto) 14.4 % 10/29/21 07:22 Eos % (Auto) 1.8 % 10/29/21 07:22 Baso % (Auto) 0.3 % 10/29/21 07:22 Neut # (Auto) 5.21 10^3/uL (1.8-7.7) 10/29/21 07: Lymph # (Auto) 1.4 10^3/uL (0.8-4.8) 10/29/21 07:22 [place] # (Auto) 1.2 10^3/uL (0.2-0.9) H 10/29/21 07:22 Eos # (Auto) 0.1 10^3/uL (0.0-0.8) 10/29/21 07:22 Baso # (Auto) 0.0 10^3/uL (0.0-0.1) 10/29/21 07:22 Nucleated RBC % (auto) 0 % 10/29/21 07:22 Total Counted Not Reportable 10/25/21 15:55 Nucleated RBCs # 0.0 /100WBC 10/29/21 07:22 ESR 19 mm/hr (0-10) H 10/26/21 04:15 PT 13.80 SECONDS (12.1-14.9) 10/27/21 04:39 INR 1.03 (0.8-1.2) 10/27/21 04:39 APTT 29.5 SECONDS (23.9-36.7) 10/24/21 04:45 Specimen Type Arterial 10/23/21 14:31 Sample Site Radial, left 10/23/21 14:31 ABG pH 7.57 (7.35-7.45) H* 10/23/21 14:31 ABG pCO2 39.2 mmHg (35-45) 10/23/21 14:31 ABG pO2 56.8 mmHg (80.0-100.0) L 10/23/21 14:31 ABG HCO3 35.5 mmol/L (22-26) H 10/23/21 14:31 ABG Base Excess 12.3 mmol/L (-2.0-2.0) H 10/23/21 14:31 Louie Test Pos 10/23/21 14:31 Hematocrit 39.2 % (42-52) L 10/23/21 14:31 O2 Delivery Device Room air 10/23/21 14:31 FiO2 21.0 % 10/23/21 14:31 [employer] ID Cak 10/23/21 14:31 Sodium 148 mmol/L (136-145) H 10/29/21 07:22 Potassium 4.1 mmol/L (3.5-5.1) 10/29/21 07:22 Chloride 102 mmol/L (98-107) 10/29/21 07:22 Carbon Dioxide 33 mmol/L (22-29) H 10/29/21 07:22 Anion Gap 17.1 (5-19) 10/29/21 07:22 BUN 70 mg/dL (8-23) H 10/29/21 07:22 Creatinine 2.7 mg/dL (0.7-1.2) H 10/29/21 07:22 GFR Calculation 23.7 mL/min (90-130) L 10/29/21 07:22 Glucose 98 mg/dL (65-115) 10/29/21 07:22 POC Glucose 110 mg/dL (70-110) 10/25/21 14:59 Calculated Osmolality 326 mOsm/kg (285-295) H 10/29/21 07:22 Calcium 10.5 mg/dL (8.5-10.5) 10/29/21 07:22 Phosphorus 3.1 mg/dL (2.5-4.5) 10/26/21 04:15 Magnesium 2.1 mg/dL (1.7-2.3) 10/26/21 04:15 Total Bilirubin 1.4 mg/dL (0.15-1.2) H 10/26/21 04:15 AST 23 U/L (0-40) 10/26/21 04:15 ALT 17 U/L (0-41) 10/26/21 04:15 Alkaline Phosphatase 85 U/L (40-130) 10/26/21 04:15 Ammonia 26 umol/L (16-60) 10/23/21 14:29 Troponin T Baseline 38 ng/L (0-15) H 10/23/21 14:29 Troponin T 120 Minute 37.14 ng/L (0-15) H 10/23/21 16:57 Delta Troponin T -0.86 ABS# (0-10) L 10/23/21 16:57 Troponin T Hi Sens 6Hr 36.45 ng/L (0-15) H 10/23/21 20:15 Troponin T Hi Sens 6Hr Delta -1.55 ng/L (0-12) L 10/23/21 20:15 NT-Pro-B Natriuret Pep 1088 pg/mL (0-125) H 10/23/21 14:29 Total Protein 5.3 g/dL (6.6-8.7) L 10/26/21 04:15 Albumin 2.5 g/dL (3.5-5.2) L 10/26/21 04:15 Globulin 2.8 g/dL (1.3-4.6) 10/26/21 04:15 TSH 22.01 uIU/mL (0.27-4.20) H 10/23/21 14:29 Free T4 0.72 ng/dL (0.82-1.77) L 10/23/21 14:29 Fluid Color Red 10/25/21 18:28 Fluid Appearance Bloody 10/25/21 18:28 Fluid WBC 4719 /uL 10/25/21 18:28 Fluid RBC 108.000 10^3/uL 10/25/21 18:28 Fluid Hematocrit 1.2 % 10/25/21 18:28 Fld Polynuclear WBCs # 0.188 10/25/21 18:28 Fld Polynuclear WBCs % 3.900 % 10/25/21 18:28 Fl Mononucl WBCs #(Auto) 4.531 10/25/21 18:28 Fl Mononuclear % Auto 96.100 % 10/25/21 18:28 Fluid Albumin 1.9 g/dL 10/25/21 18:28 Fluid Creatinine 2.00 (0.7-1.2) H 10/25/21 18:28 Pleural Color Cancelled 10/25/21 18:28 Pleural Appearance Cancelled 10/25/21 18:28 Pleural pH 8.00 (6.5-7.5) H 10/25/21 18:28 Pleural WBC Cancelled 10/25/21 18:28 Pleural RBC Cancelled 10/25/21 18:28 Pleural Mononuc # Auto Cancelled 10/25/21 18:28 Pleural Other Cells Not Reportable 10/25/21 15:55 Pleural Polynuclear % Cancelled 10/25/21 18:28 Pleural Polynuclear # Cancelled 10/25/21 18:28 Pleural Mononuclear % Cancelled 10/25/21 18:28 Pleural Other Cells Rt Cancelled 10/25/21 18:28 Pleural Total Protein 3.4 g/dL 10/25/21 18:28 Pleural LDH 1455 U/L 10/25/21 18:28 Pleural Glucose 44.0 mg/dL 10/25/21 18:28 Pleural Amylase 19.0 U/L 10/25/21 18:28 Pleural Triglycerides 47 mg/dL 10/25/21 18:28 Lymphoma Panel See report 10/27/21 11:55 Path Cons w/Slide Yes 10/25/21 15:55 Pathology Message Cancelled 10/25/21 18:28 Vitals Last Vital Signs Temp 97.8 F 10/30/21 08:00 Pulse 97 10/30/21 08:45 Resp 20 H 10/30/21 08:45 BP 109/61 10/30/21 08:00 Pulse Ox 91 10/30/21 08:45 O2 Del Method 10/30/21 08:45 O2 Flow Rate 2 10/30/21 04:00 FiO2 2 10/24/21 19:46 Discharge Plan Discharge Patient Disposition: Home Condition: Stable Prescriptions: New levothyroxine 150 mcg Tablet 150 mcg PO DAILY 30 Days Qty: 30 3RF Continued citalopram 40 mg tablet 40 mg PO DAILY alprazolam 1 mg tablet 1 mg PO BEDTIME PRN (Reason: Anxiety) tamsulosin 0.4 mg capsule 0.8 mg PO DAILY gabapentin 100 mg capsule 100 mg PO BID albuterol sulfate 90 mcg/actuation HFA aerosol inhaler 2 puff INHALATION Q6H PRN (Reason: Shortness Of Breath) fluticasone propionate 50 mcg/actuation spray,suspension 2 spray INTRANASAL BID PRN (Reason: Nasal Congestion) Advair HFA 115-21 mcg/actuation HFA aerosol inhaler 2 puff INHALATION Q12H Rexulti 0.5 mg tablet 0.5 mg PO DAILY donepezil 5 mg Tablet 10 mg PO BEDTIME Qty: 60 0RF folic acid 1 mg Tablet 1 mg PO BID Qty: 60 0RF ferrous gluconate 324 mg (37.5 mg iron) Tablet 324 mg PO BIDWM Qty: 60 0RF Discontinued prazosin 1 mg capsule 1 - 3 mg PO BEDTIME furosemide [Lasix] 40 mg tablet 40 mg PO BID Qty: 60 0RF metolazone 5 mg tablet 5 mg PO DAILY PRN (Reason: shortness of breath) Qty: 14 0RF Discharge Orders: Discharge Order (Routine); Ordered 10/30/21 Ordered By: Rah Whitley Other Ambulatory Orders: Thyroid Stimulating Hormone (Routine) Timeframe: 3 Weeks Facility: [facility] - Location: Lab - Main Lab Ordered By: Rah Whitley DME: Oxygen (Order) Location: None Selected Ordered By: Rah Whitley Referrals: Josemanuel Negrete DO [Primary Care Provider] - (C,INASHLEY WILL CALL WITH APPOINTMENT) Prasanth Nettles MD [Physician] - 1 week (PLEASE CALL IF YOU DONT HEAR FROM DR NETTLES NEXT WEEK) Patient Instructions: Levothyroxine (By mouth), Hypokalemia (DC), Hypothyroidism (DC), Pleural Effusion (DC), Opioid Safety Discharge Attestations Time Spent in Discharge Care*: less than 30 min Status at Discharge: Cognitive status at discharge: mildly impaired cognition, Behavioral status at discharge: cooperative, Quality Metrics Clinical Quality Measures [ No reported AMI, CVA or VTE this stay] Coding Level of Care Code Acute Chg FW DC note Diagnoses Recurrent right pleural effusion J90 Omental mass K66.8 Hypokalemia E87.6 Acute kidney injury superimposed on chronic kidney disease N17.9; N18.9 Hypothyroid E03.9 B-cell lymphoma C85.10
--- NOTE | 2021-10-30 13:44 | PC.SOCIAL ---
IMM update IMM updated with son. Copy of page 2 reviewed. Son verbalized understanding. Copy in chart initialed, timed and dated.
[2021-11-10 13:41] LABS: High Grade Lymphoma (FISH)BBPL See Report
== END 2021-10-30 18:35 | disposition home health service (06) | DRG 841 ==
LOC: ER 18:29 → MEDSURG 19:50
PROVIDERS: Radiology Neuroradiology; Admitting Provider Internal Medicine; Emergency Provider Emergency Medicine; PCP Family Medicine; Visit Provider Internal Medicine
DX: C83.30 Diffuse large B-cell lymphoma, unspecified site (principal); C78.6 Secondary malignant neoplasm of retroperitoneum and peritoneum; J91.0 Malignant pleural effusion; N17.9 Acute kidney failure, unspecified; E87.6 Hypokalemia; N18.9 Chronic kidney disease, unspecified; E03.9 Hypothyroidism, unspecified; N40.0 Benign prostatic hyperplasia without lower urinary tract symptoms; F32.A Depression, unspecified; I12.9 Hypertensive chronic kidney disease with stage 1 through stage 4 chronic kidney disease, or unspecified chronic kidney disease; R41.0 Disorientation, unspecified
CPT/HCPCS: 36415; 36416; 36600; 49180; 70450; 71045; 72125; 77012; 80048; 80053; 80503; 82042; 82140; 82150; 82570; 82803; 82945; 82962; 83615; 83735; 83880; 83986; 84100; 84157; 84439; 84443; 84478; 84484; 85014; 85025; 85610; 85651; 85730; 87015; 87070; 87075; 87116; 87205; 87206; 87801; 88108; 88184; 88185; 88305; 88342; 88374; 89050; 93005; 94664; 94760; 96372; 97110; 97116; 97161; 97165; 97530; 97535; 99285; G0378; J1650; J2250; J2704; J3486; J3490; J7030